=== PATIENT | male | born 1975 | race African-American/Black ===

== ENCOUNTER 2016-07-27 21:59 | Emergency (ER) | payer MEDICARE, OTHER ==
[~2016-07-27] VITALS: Ht 175.3 cm; Wt 81.6 kg
[~2016-07-27 21:59] MED LIST: BENTYL20 MG PO; CHOLESTYRAMI239.4 GM PO; DILAUDID 44 MG/1 ML IJ; DILAUDID4 MG PO; DILAUDID8 MG PO; GATTEX5 MG SQ; HYDROCODON-ACE1 EA16 ORAL; LOMOTIL TABLET1 EACH ORAL; MAGNESIUM OXID400 M1 ORAL; NORCO1 E5 PO; OXYCONTIN30 MG ORAL; SIMETHICONE GA125 MG PO; ZOFRAN4 M3 ORAL
[2016-07-27] MEDS ORDERED: HYDROmorphone 1mg/ml Carpuject IVP ONE (22:30)
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
[2016-07-27 22:55] VITALS: BP 111/74
[2016-07-27 23:30] VITALS: BP 110/76
[2016-07-27 23:32] LABS: BASOPHILS % (AUTO) 0.6 % (0.0-2.0); EOSINOPHILS % (AUTO) 1.2 % (0.0-3.0); LYMPHOCYTES % (AUTO) 19.8 % (20.0-45.0); MEAN CORPUSCULAR HEMOGLOBIN 34.4 PG (27.0-31.0); MEAN CORPUSCULAR HGB CONC 32.5 G/DL (32.0-36.0); MEAN CORPUSCULAR VOLUME 106 FL (80-99); MEAN PLATELET VOLUME 5.8 FL (6.5-10.1); MONOCYTES % (AUTO) 6.1 % (1.0-10.0); NEUTROPHILS % (AUTO) 72.3 % (45.0-75.0); PLATELET COUNT 249 K/UL (150-450); RED BLOOD COUNT 3.37 M/UL (4.70-6.10)
[2016-07-27] MEDS ORDERED: Miralax 17gm pkt ORAL PRN (23:45)
[2016-07-27] MEDS ORDERED: Mylanta II UD 30ml ORAL PRN (23:45)
[2016-07-27] MEDS ORDERED: Morphine Sulfate 2mg/ml Inj IVP PRN (23:45)
[2016-07-27] MEDS ORDERED: Nitroglycerin Subl 0.4mg tab (Bottle Of 25) SL PRN (23:45)
[2016-07-27 23:50] LABS: ALBUMIN/GLOBULIN RATIO 1.4 (1.0-2.7); CALCIUM 9.2 mg/dL (8.6-10.2); CREATININE 2.3 mg/dL (0.7-1.2); GLOMERULAR FILTRATION RATE 38.5 mL/min (>60); MAGNESIUM 1.4 mg/dL (1.7-2.5); POTASSIUM 4.4 mEQ/L (3.4-4.9)
[2016-07-28] MEDS ORDERED: D5 1/2NS 1,000 ML IV SCH (01:00)
[2016-07-28 01:24] VITALS: BP 115/78
[2016-07-28] MEDS ORDERED: Heparin 5000 units/ml inj SUBQ SCH (09:00)
== END 2016-07-28 01:24 | disposition home or self-care (01) ==
LOC: EMR 22:10
DX: R10.84 Generalized abdominal pain (principal); I12.9 Hypertensive chronic kidney disease with stage 1 through stage 4 chronic kidney disease, or unspecified chronic kidney disease; N18.9 Chronic kidney disease, unspecified; E83.42 Hypomagnesemia; G89.29 Other chronic pain; R11.2 Nausea with vomiting, unspecified; Z98.890 Other specified postprocedural states
CPT/HCPCS: 36415; 80053; 83690; 83735; 85025; 99285; J1170; J2405

== ENCOUNTER 2016-10-17 14:57 | Inpatient (IN) | payer MEDICARE, OTHER ==
[~2016-10-17] VITALS: Ht 175.3 cm; Wt 79.4 kg
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
[2016-10-17] MEDS ORDERED: HYDROmorphone 1 MG, DiphenhydrAMINE 25 MG in NS 55 ML IV ONE (15:45)
[2016-10-17] MEDS ORDERED: DiphenhydrAMINE 50mg/ml Inj ONE (16:02)
[2016-10-17] MEDS ORDERED: HYDROmorphone 1mg/ml Carpuject ONE (16:02)
[2016-10-17 16:25] LABS: BASOPHILS % (AUTO) 0.7 % (0.0-2.0); EOSINOPHILS % (AUTO) 0.9 % (0.0-3.0); LYMPHOCYTES % (AUTO) 19.3 % (20.0-45.0); MEAN CORPUSCULAR HEMOGLOBIN 35.7 PG (27.0-31.0); MEAN CORPUSCULAR HGB CONC 33.5 G/DL (32.0-36.0); MEAN CORPUSCULAR VOLUME 107 FL (80-99); MEAN PLATELET VOLUME 6.6 FL (6.5-10.1); MONOCYTES % (AUTO) 7.2 % (1.0-10.0); NEUTROPHILS % (AUTO) 71.9 % (45.0-75.0); PLATELET COUNT 200 K/UL (150-450); RED BLOOD COUNT 3.34 M/UL (4.70-6.10); RED CELL DISTRIBUTION WIDTH 11.9 % (11.6-14.8); WHITE BLOOD COUNT 6.7 K/UL (4.8-10.8)
[2016-10-17 16:41] LABS: PHOSPHORUS 2.8 mg/dL (2.5-4.8)
[2016-10-17 16:42] LABS: MAGNESIUM 0.7 mg/dL (1.7-2.5)
[2016-10-17 16:45] LABS: ALBUMIN/GLOBULIN RATIO 1.4 (1.0-2.7); CALCIUM 8.2 mg/dL (8.6-10.2); CREATININE 2.4 mg/dL (0.7-1.2); GLOMERULAR FILTRATION RATE 36.7 mL/min (>60); POTASSIUM 3.9 mEQ/L (3.4-4.9); TOTAL PROTEIN 6.9 g/dL (6.6-8.7)
[2016-10-17 16:57] LABS: BILIRUBIN,DIRECT 0.1 mg/dL (0.1-0.3)
[2016-10-17 17:00] VITALS: BP 111/65
[2016-10-17 18:01] LABS: APPEARANCE,URINE CLEAR; KETONES,URINE NEGATIVE (NEGATIVE); LEUKOCYTE ESTERASE ,URINE 1+ (NEGATIVE); NITRITE,URINE NEGATIVE (NEGATIVE); PH,URINE 6.5 (4.5-8.0); PROTEIN,URINE 1+ (NEGATIVE); UROBILINOGEN,URINE NORMAL MG/DL (0.0-1.0)
[2016-10-17 18:04] LABS: BACTERIA,URINE FEW /HPF; RBC,URINE 0-2 /HPF (0 - 0)
[2016-10-17 18:15] VITALS: BP 124/94
[2016-10-17] MEDS ORDERED: MULTI-DELYN237 ML ORAL (18:46)
[2016-10-17] MEDS ORDERED: Mylanta II UD 30ml ORAL PRN (19:15)
[2016-10-17] MEDS ORDERED: Morphine Sulfate 2mg/ml Inj IVP PRN (19:15)
[2016-10-17] MEDS ORDERED: LORazepam Inj 2mg/ml 1ml IV PRN (19:15)
[2016-10-17] MEDS ORDERED: Miralax 17gm pkt ORAL PRN (19:15)
[2016-10-17] MEDS ORDERED: Zolpidem 5mg tab ORAL PRN (19:15)
[2016-10-17 20:00] VITALS: BP 121/70
[2016-10-17] MEDS ORDERED: HYDROmorphone 2 MG, DiphenhydrAMINE 25 MG in NS 55 ML IVPB PRN (20:45)
[2016-10-17] MEDS ORDERED: HYDROmorphone 1 MG, DiphenhydrAMINE 25 MG in NS 55 ML IVPB PRN (20:45)
[2016-10-17] MEDS: Heparin 5000 units/ml inj SUBQ SCH (21:00)
[2016-10-17] MEDS ORDERED: HYDROmorphone 1mg/ml Carpuject IVP PRN (21:30)
[2016-10-17] MEDS: DiphenhydrAMINE 50mg/ml Inj IV PRN (21:38)
[2016-10-17] MEDS: Sodium Bicarbonate 50 ML in NS 1000ml 1,000 ML IV SCH (22:25)
[2016-10-18] VITALS: BP 109/58
[2016-10-18] MEDS: DiphenhydrAMINE 50mg/ml Inj IV PRN ×6 (01:54→23:50)
[2016-10-18 06:00] VITALS: BP 110/58
[2016-10-18] MEDS: Sodium Bicarbonate 50 ML in NS 1000ml 1,000 ML IV SCH ×2 (06:24→11:29)
[2016-10-18 07:20] LABS: BASOPHILS % (AUTO) 0.4 % (0.0-2.0); EOSINOPHILS % (AUTO) 1.3 % (0.0-3.0); LYMPHOCYTES % (AUTO) 25.1 % (20.0-45.0); MEAN CORPUSCULAR HEMOGLOBIN 36.1 PG (27.0-31.0); MEAN CORPUSCULAR HGB CONC 33.5 G/DL (32.0-36.0); MEAN CORPUSCULAR VOLUME 108 FL (80-99); MEAN PLATELET VOLUME 7.2 FL (6.5-10.1); MONOCYTES % (AUTO) 7.8 % (1.0-10.0); NEUTROPHILS % (AUTO) 65.4 % (45.0-75.0); PLATELET COUNT 185 K/UL (150-450); RED BLOOD COUNT 3.07 M/UL (4.70-6.10); RED CELL DISTRIBUTION WIDTH 12.2 % (11.6-14.8); WHITE BLOOD COUNT 6.3 K/UL (4.8-10.8)
[2016-10-18 07:37] LABS: CHOLESTEROL/HDL RATIO 2.5 (3.3-4.4); THYROID STIMULATING HORMONE 1.88 uIU/mL (0.300-4.500)
[2016-10-18 07:38] LABS: ALANINE AMINOTRANSFERASE 14 U/L (3-41); ALBUMIN/GLOBULIN RATIO 1.5 (1.0-2.7); ANION GAP 16 (5-15); ASPARTATE AMINO TRANSFERASE 18 U/L (5-40); CALCIUM 8.1 mg/dL (8.6-10.2); CARBON DIOXIDE 17 mEQ/L (20-30); CHLORIDE 111 mEQ/L (98-107); CREATININE 2.3 mg/dL (0.7-1.2); GLOMERULAR FILTRATION RATE 38.5 mL/min (>60); HEMOLYSIS 7; MAGNESIUM 2.4 mg/dL (1.7-2.5); PHOSPHORUS 3.3 mg/dL (2.5-4.8); POTASSIUM 4.3 mEQ/L (3.4-4.9); SODIUM 144 mEQ/L (135-145); URIC ACID 7.7 mg/dL (3.0-7.5)
[2016-10-18] MEDS: Heparin 5000 units/ml inj SUBQ SCH ×2 (08:07→21:00)
[2016-10-18 08:14] LABS: CORTISOL LC 8.8 ug/dL (.); FREE TRIIODOTHYRONINE 2.7 pg/mL (2.0-4.4)
[2016-10-18 08:22] VITALS: BP 125/69
[2016-10-18 09:09] LABS: HEMOGLOBIN A1C 3.7 % (< 6.0)
[2016-10-18] MEDS ORDERED: NS 55ml IV ONE (10:10)
[2016-10-18 10:29] LABS: APPEARANCE,URINE CLEAR; KETONES,URINE NEGATIVE (NEGATIVE); LEUKOCYTE ESTERASE ,URINE NEGATIVE (NEGATIVE); NITRITE,URINE NEGATIVE (NEGATIVE); PH,URINE 6.5 (4.5-8.0); PROTEIN,URINE 1+ (NEGATIVE); UROBILINOGEN,URINE NORMAL MG/DL (0.0-1.0)
[2016-10-18 11:07] VITALS: BP 120/77
[2016-10-18 11:09] LABS: BACTERIA,URINE OCCASIONAL /HPF; RBC,URINE 0-2 /HPF (0 - 0); SQUAMOUS EPITHELIAL CELL,UR OCCASIONAL /LPF (NONE/OCC); WBC,URINE 0-2 /HPF (0 - 0)
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
[2016-10-18 16:00] VITALS: BP 118/68
[2016-10-18] MEDS: Sodium Bicarbonate 50 ML in 1/2 NS 1000ml 1,000 ML IV SCH ×2 (17:20→18:44)
[2016-10-18 20:00] VITALS: BP 128/76
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
[2016-10-19 00:10] VITALS: BP 134/76
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
[2016-10-19] MEDS: DiphenhydrAMINE 50mg/ml Inj IV PRN ×5 (03:55→20:05)
[2016-10-19] MEDS: Sodium Bicarbonate 50 ML in 1/2 NS 1000ml 1,000 ML IV SCH ×3 (03:55→18:55)
[2016-10-19 04:00] VITALS: BP 122/83
[2016-10-19 06:39] LABS: BASOPHILS % (AUTO) 0.4 % (0.0-2.0); EOSINOPHILS % (AUTO) 1.2 % (0.0-3.0); LYMPHOCYTES % (AUTO) 23.2 % (20.0-45.0); MEAN CORPUSCULAR HEMOGLOBIN 34.9 PG (27.0-31.0); MEAN CORPUSCULAR HGB CONC 31.9 G/DL (32.0-36.0); MEAN CORPUSCULAR VOLUME 109 FL (80-99); MONOCYTES % (AUTO) 6.7 % (1.0-10.0); NEUTROPHILS % (AUTO) 68.5 % (45.0-75.0); PLATELET COUNT 182 K/UL (150-450); RED BLOOD COUNT 3.03 M/UL (4.70-6.10); RED CELL DISTRIBUTION WIDTH 12.6 % (11.6-14.8); WHITE BLOOD COUNT 5.8 K/UL (4.8-10.8)
[2016-10-19 07:31] LABS: ALANINE AMINOTRANSFERASE 14 U/L (3-41); ALBUMIN/GLOBULIN RATIO 1.6 (1.0-2.7); ANION GAP 12 (5-15); ASPARTATE AMINO TRANSFERASE 17 U/L (5-40); CALCIUM 8.1 mg/dL (8.6-10.2); CARBON DIOXIDE 19 mEQ/L (20-30); CHLORIDE 113 mEQ/L (98-107); CREATININE 2.2 mg/dL (0.7-1.2); CRP QUANT < 0.3 mg/dL (< 0.5); GLOMERULAR FILTRATION RATE 40.6 mL/min (>60); HEMOLYSIS 5; MAGNESIUM 1.6 mg/dL (1.7-2.5); PHOSPHORUS 2.6 mg/dL (2.5-4.8); POTASSIUM 4.4 mEQ/L (3.4-4.9); SODIUM 144 mEQ/L (135-145); TOTAL PROTEIN 5.6 g/dL (6.6-8.7); URIC ACID 6.7 mg/dL (3.0-7.5)
[2016-10-19] MEDS: Heparin 5000 units/ml inj SUBQ SCH ×2 (08:12→20:07)
[2016-10-19 08:22] VITALS: BP 122/83
[2016-10-19] MEDS ORDERED: Vitamin D 50,000 units cap ORAL SCH (10:00)
--- NOTE | 2016-10-19 10:32 | General Progress Note ---
Assessment/Plan Assessment/Plan status: Hypo Magnesium Acute on Chronic renal failure Short bowel syndrome Plan: IV hydrate, Bicarb and Mag Monitor lytes and Chemistries PO Vit D Subjective ROS Limited/Unobtainable: No Allergies: Coded Allergies: MORPHINE (Unverified Allergy, Unknown, 10/17/16) PROCHLORPERAZINE (Verified Allergy, Unknown, 08/09/11) Uncoded Allergies: morphine sulfate (Allergy, Mild, 12/12/14) Objective Last 24 Hour Vital Signs Date Time Temp Pulse Resp B/P Pulse Ox O2 Delivery O2 Flow Rate FiO2 10/19/16 08:22 97.5 66 20 122/83 98 Room Air 10/19/16 04:26 98.1 10/19/16 04:00 97.7 71 20 122/83 96 Room Air 10/19/16 00:10 98.1 79 20 134/76 99 Room Air 10/18/16 20:00 97.5 75 20 128/76 97 Room Air 10/18/16 16:00 98.0 73 19 118/68 99 Room Air 10/18/16 11:07 97.9 70 20 120/77 100 Room Air Intake and Output 10/18/16 10/19/16 19:00 07:00 Intake Total 1730 ml 1825 ml Balance 1730 ml 1825 ml Intake Oral 480 ml 400 ml IV Total 1250 ml 1425 ml # Voids 3 3 # Bowel Movements 2 1 Laboratory Tests 10/19/16 04:00: White Blood Count 5.8, Red Blood Count 3.03L, Hemoglobin 10.6L, Hematocrit 33.1L , Mean Corpuscular Volume 109H, Mean Corpuscular Hemoglobin 34.9H, Mean Corpuscular Hemoglobin Concent 31.9L, Red Cell Distribution Width 12.6, Platelet Count 182, Mean Platelet Volume 7.0, Neutrophils (%) (Auto) 68.5, Lymphocytes (%) (Auto) 23.2, Monocytes (%) (Auto) 6.7, Eosinophils (%) (Auto) 1.2, Basophils (%) (Auto) 0.4, Sodium Level 144, Potassium Level 4.4, Chloride Level 113H, Carbon Dioxide Level 19L, Anion Gap 12, Blood Urea Nitrogen 11, Creatinine 2.2H, Estimat Glomerular Filtration Rate 40.6, Glucose Level 91, Uric Acid 6.7, Calcium Level 8.1L, Phosphorus Level 2.6, Magnesium Level 1.6L, Total Bilirubin 0.5, Gamma Glutamyl Transpeptidase 9, Aspartate Amino Transf ( AST/SGOT) 17, Alanine Aminotransferase (ALT/SGPT) 14, Alkaline Phosphatase 69, C -Reactive Protein, Quantitative < 0.3, Total Protein 5.6L, Albumin 3.5, Globulin 2.1, Albumin/Globulin Ratio 1.6 Height (Feet): 5 Height (Inches): 9.00 Weight (Pounds): 175 General Appearance: no apparent distress Objective no change in PE DOMINIC STODDARD October 19, 2016 10:32
[2016-10-19 12:29] VITALS: BP 122/79
[2016-10-19 13:27] LABS: HEMOLYSIS 6; IRON 92 ug/dL (59-158); TOTAL IRON BINDING CAPACITY 251 ug/dL (250-400)
[2016-10-19 13:36] LABS: FERRITIN 72 ng/mL (10-230)
[2016-10-19] MEDS: Pantoprazole Inj IVP SCH (15:02)
--- NOTE | 2016-10-19 15:19 | Internal Med Progress Note ---
Subjective Date of Service: October 19, 2016 Physician Name Gallegos,Mauro Attending Physician Bean Gaspar MD Current Medications Medications (Trade) Dose Ordered Sig/Jo Nan Route PRN Reason Start Time Stop Time Status Last Admin Dose Admin Acetaminophen (Tylenol) 650 mg Q4H PRN ORAL fever 10/17/16 19:15 11/16/16 19:14 Al Hydroxide/Mg Hydroxide (Mylanta) 30 ml Q6H PRN ORAL indigestion 10/19/16 13:00 11/18/16 12:59 Clonidine HCl (Catapres) 0.1 mg Q4H PRN ORAL SBP > 160 10/17/16 19:15 11/16/16 19:14 Dextrose (Dextrose 50%) STAT PRN IV Hypoglycemia 10/17/16 19:15 11/16/16 19:14 Diphenhydramine HCl (Benadryl) 50 mg Q4H PRN IV Itching 10/18/16 19:00 11/17/16 18:59 10/19/16 12:01 Ergocalciferol (Drisdol) 50,000 intlu QWEEK ORAL 10/19/16 10:00 11/18/16 09:59 10/19/16 11:04 Heparin Sodium (Porcine) (Heparin 5000 units/ml) 5,000 units EVERY 12 HOURS SUBQ 10/17/16 21:00 11/16/16 20:59 10/19/16 08:12 Hydromorphone HCl (Dilaudid) 1 mg Q4H PRN IVP MODERATE PAIN 10/17/16 21:30 10/24/16 21:29 Hydromorphone HCl 2 mg 2 mg Q4H PRN IVP SEVERE PAIN 10/17/16 21:30 10/24/16 21:29 10/19/16 12:01 Ondansetron HCl (Zofran) 4 mg Q6H PRN IVP Nausea & Vomiting 10/17/16 19:15 11/16/16 19:14 Pantoprazole (Protonix) 40 mg DAILY IVP 10/19/16 14:00 11/18/16 13:59 10/19/16 15:02 Polyethylene Glycol (Miralax) 17 gm HSPRN PRN ORAL Constipation 10/17/16 19:15 11/16/16 19:14 Sodium Bicarbonate/ Sodium Chloride (Sodium Bicarbonate/0.45% NS 1000ml) 1,050 ml @ 125 mls/hr Q8H24M IV 10/18/16 17:30 11/17/16 17:29 10/19/16 03:55 Sucralfate (Carafate) 1 gm BEFORE MEALS ORAL 10/19/16 16:30 11/18/16 16:29 Zolpidem Tartrate (Ambien) 5 mg HSPRN PRN ORAL Insomnia 10/17/16 19:15 11/16/16 19:14 Allergies: Coded Allergies: MORPHINE (Unverified Allergy, Unknown, 10/17/16) PROCHLORPERAZINE (Verified Allergy, Unknown, 08/09/11) Uncoded Allergies: morphine sulfate (Allergy, Mild, 12/12/14) ROS Limited/Unobtainable: No HEENT: Reports: no symptoms Cardiovascular: Reports: no symptoms Respiratory: Reports: no symptoms Gastrointestinal/Abdominal: Reports: abdominal pain, diarrhea Genitourinary: Reports: no symptoms Neurologic/Psychiatric: Reports: no symptoms Subjective 41 YO M with short gut syndrome admitted with muscle cramps and diarrhea. Now hypomagnesemia. C/O watery diarrhea. Cover tor Int Med-Dr Gaspar. Objective Last Vital Signs Date Time Temp Pulse Resp B/P Pulse Ox O2 Delivery O2 Flow Rate FiO2 10/19/16 12:29 97.9 68 18 122/79 98 Room Air Laboratory Tests Test 10/19/16 04:00 10/19/16 12:50 White Blood Count 5.8 K/UL (4.8-10.8) Red Blood Count 3.03 M/UL (4.70-6.10) L Hemoglobin 10.6 G/DL (14.2-18.0) L Hematocrit 33.1 % (42.0-52.0) L Mean Corpuscular Volume 109 FL (80-99) H Mean Corpuscular Hemoglobin 34.9 PG (27.0-31.0) H Mean Corpuscular Hemoglobin Concent 31.9 G/DL (32.0-36.0) L Red Cell Distribution Width 12.6 % (11.6-14.8) Platelet Count 182 K/UL (150-450) Mean Platelet Volume 7.0 FL (6.5-10.1) Neutrophils (%) (Auto) 68.5 % (45.0-75.0) Lymphocytes (%) (Auto) 23.2 % (20.0-45.0) Monocytes (%) (Auto) 6.7 % (1.0-10.0) Eosinophils (%) (Auto) 1.2 % (0.0-3.0) Basophils (%) (Auto) 0.4 % (0.0-2.0) Sodium Level 144 mEQ/L (135-145) Potassium Level 4.4 mEQ/L (3.4-4.9) Chloride Level 113 mEQ/L (98-107) H Carbon Dioxide Level 19 mEQ/L (20-30) L Anion Gap 12 (5-15) Blood Urea Nitrogen 11 mg/dL (7-23) Creatinine 2.2 mg/dL (0.7-1.2) H Estimat Glomerular Filtration Rate 40.6 mL/min (>60) Glucose Level 91 mg/dL (74-106) Uric Acid 6.7 mg/dL (3.0-7.5) Calcium Level 8.1 mg/dL (8.6-10.2) L Phosphorus Level 2.6 mg/dL (2.5-4.8) Magnesium Level 1.6 mg/dL (1.7-2.5) L Total Bilirubin 0.5 mg/dL (0.0-1.2) Gamma Glutamyl Transpeptidase 9 U/L (8-61) Aspartate Amino Transf (AST/SGOT) 17 U/L (5-40) Alanine Aminotransferase (ALT/SGPT) 14 U/L (3-41) Alkaline Phosphatase 69 U/L (40-129) C-Reactive Protein, Quantitative < 0.3 mg/dL (< 0.5) Total Protein 5.6 g/dL (6.6-8.7) L Albumin 3.5 g/dL (3.5-5.2) Globulin 2.1 g/dL Albumin/Globulin Ratio 1.6 (1.0-2.7) Iron Level 92 ug/dL (59-158) Total Iron Binding Capacity 251 ug/dL (250-400) Percent Iron Saturation 37 % (15-50) Unsaturated Iron Binding 159 ug/dL (112-346) Ferritin 72 ng/mL (10-230) Vitamin B12 Level 109 pg/mL (211-946) L Folate Pending Intake and Output 10/18/16 10/19/16 19:00 07:00 Intake Total 1730 ml 1825 ml Balance 1730 ml 1825 ml Intake Oral 480 ml 400 ml IV Total 1250 ml 1425 ml # Voids 3 3 # Bowel Movements 2 1 Objective General: alert, cooperative, no distress, appears stated age Head: normocephalic, without obvious abnormality, atraumatic Eyes: conjunctivae/corneas clear. PERRL, EOM's intact Throat: lips, mucosa, and tongue normal. MMM Neck: supple, symmetrical, trachea midline, and no JVD Lungs: clear to auscultation bilaterally Heart: regular rate and rhythm, S1, S2 normal, no murmur, click, rub or gallop Abdomen: soft, tender to palp, non-distended, hyperactive bowel sounds; no masses or organomegaly Extremities: extremities normal, atraumatic, no cyanosis or edema Pulses: 2+ and symmetric Skin: skin color, texture, turgor normal; no rashes or lesions Neurologic: grossly normal, no focal deficits Assessment/Plan Problem List: (1) Opiate dependence Assessment & Plan: Cont dilaudid (2) Short bowel syndrome (3) Hypomagnesemia (4) Diarrhea Assessment & Plan: Await stool studies. Due to short bowel syndrome. See GI note. (5) Renal failure (6) Abdominal pain (7) GERD (gastroesophageal reflux disease) Assessment & Plan: Cont protonix carafate and mylanta per GI Status: not improved MAURO GALLEGOS October 19, 2016 15:19
[2016-10-19] MEDS: Sucralfate 1gm tab ORAL SCH (16:00)
[2016-10-19 16:20] VITALS: BP 116/72
--- NOTE | 2016-10-19 17:50 | General Progress Note ---
Assessment/Plan Assessment/Plan Assessment - chronic diarrhea - short gut syndrome - recurrent pain - electrolyte abnormalities Recommendations - IV fluids - replace lytes - follow labs - re-establish outpt IV hydration therapy Subjective Allergies: Coded Allergies: MORPHINE (Unverified Allergy, Unknown, 10/17/16) PROCHLORPERAZINE (Verified Allergy, Unknown, 08/09/11) Uncoded Allergies: morphine sulfate (Allergy, Mild, 12/12/14) Objective Last 24 Hour Vital Signs Date Time Temp Pulse Resp B/P Pulse Ox O2 Delivery O2 Flow Rate FiO2 10/19/16 16:20 98.1 78 20 116/72 98 Room Air 10/19/16 12:29 97.9 68 18 122/79 98 Room Air 10/19/16 08:22 97.5 66 20 122/83 98 Room Air 10/19/16 04:26 98.1 10/19/16 04:00 97.7 71 20 122/83 96 Room Air 10/19/16 00:10 98.1 79 20 134/76 99 Room Air 10/18/16 20:00 97.5 75 20 128/76 97 Room Air Intake and Output 10/18/16 10/19/16 19:00 07:00 Intake Total 1730 ml 1825 ml Balance 1730 ml 1825 ml Intake Oral 480 ml 400 ml IV Total 1250 ml 1425 ml # Voids 3 3 # Bowel Movements 2 1 Laboratory Tests 10/19/16 04:00: White Blood Count 5.8, Red Blood Count 3.03L, Hemoglobin 10.6L, Hematocrit 33.1L , Mean Corpuscular Volume 109H, Mean Corpuscular Hemoglobin 34.9H, Mean Corpuscular Hemoglobin Concent 31.9L, Red Cell Distribution Width 12.6, Platelet Count 182, Mean Platelet Volume 7.0, Neutrophils (%) (Auto) 68.5, Lymphocytes (%) (Auto) 23.2, Monocytes (%) (Auto) 6.7, Eosinophils (%) (Auto) 1.2, Basophils (%) (Auto) 0.4, Sodium Level 144, Potassium Level 4.4, Chloride Level 113H, Carbon Dioxide Level 19L, Anion Gap 12, Blood Urea Nitrogen 11, Creatinine 2.2H, Estimat Glomerular Filtration Rate 40.6, Glucose Level 91, Uric Acid 6.7, Calcium Level 8.1L, Phosphorus Level 2.6, Magnesium Level 1.6L, Total Bilirubin 0.5, Gamma Glutamyl Transpeptidase 9, Aspartate Amino Transf ( AST/SGOT) 17, Alanine Aminotransferase (ALT/SGPT) 14, Alkaline Phosphatase 69, C -Reactive Protein, Quantitative < 0.3, Total Protein 5.6L, Albumin 3.5, Globulin 2.1, Albumin/Globulin Ratio 1.6 10/19/16 12:50: Iron Level 92, Total Iron Binding Capacity 251, Percent Iron Saturation 37, Unsaturated Iron Binding 159, Ferritin 72, Vitamin B12 Level 109L, Folate [ Pending] Height (Feet): 5 Height (Inches): 9.00 Weight (Pounds): 175 SIMON CLEMONS October 19, 2016 17:50
[2016-10-19 20:32] VITALS: BP 146/86
--- NOTE | 2016-10-19 22:09 | Pulmonology Progress Note ---
Assessment/Plan Problems: (1) Hypomagnesemia (2) Abdominal pain of unknown etiology (3) CKD (chronic kidney disease) (4) Short bowel syndrome (5) Diarrhea Subjective Allergies: Coded Allergies: MORPHINE (Unverified Allergy, Unknown, 10/17/16) PROCHLORPERAZINE (Verified Allergy, Unknown, 08/09/11) Uncoded Allergies: morphine sulfate (Allergy, Mild, 12/12/14) Objective Last 24 Hour Vital Signs Date Time Temp Pulse Resp B/P Pulse Ox O2 Delivery O2 Flow Rate FiO2 10/19/16 20:45 98.2 10/19/16 20:32 98.2 87 20 146/86 99 Room Air 10/19/16 16:20 98.1 78 20 116/72 98 Room Air 10/19/16 12:29 97.9 68 18 122/79 98 Room Air 10/19/16 08:22 97.5 66 20 122/83 98 Room Air 10/19/16 04:00 97.7 71 20 122/83 96 Room Air 10/19/16 00:10 98.1 79 20 134/76 99 Room Air Intake and Output 10/18/16 10/19/16 19:00 07:00 Intake Total 1730 ml 1825 ml Balance 1730 ml 1825 ml Intake Oral 480 ml 400 ml IV Total 1250 ml 1425 ml # Voids 3 3 # Bowel Movements 2 1 Laboratory Tests 10/19/16 04:00: White Blood Count 5.8, Red Blood Count 3.03L, Hemoglobin 10.6L, Hematocrit 33.1L , Mean Corpuscular Volume 109H, Mean Corpuscular Hemoglobin 34.9H, Mean Corpuscular Hemoglobin Concent 31.9L, Red Cell Distribution Width 12.6, Platelet Count 182, Mean Platelet Volume 7.0, Neutrophils (%) (Auto) 68.5, Lymphocytes (%) (Auto) 23.2, Monocytes (%) (Auto) 6.7, Eosinophils (%) (Auto) 1.2, Basophils (%) (Auto) 0.4, Sodium Level 144, Potassium Level 4.4, Chloride Level 113H, Carbon Dioxide Level 19L, Anion Gap 12, Blood Urea Nitrogen 11, Creatinine 2.2H, Estimat Glomerular Filtration Rate 40.6, Glucose Level 91, Uric Acid 6.7, Calcium Level 8.1L, Phosphorus Level 2.6, Magnesium Level 1.6L, Total Bilirubin 0.5, Gamma Glutamyl Transpeptidase 9, Aspartate Amino Transf ( AST/SGOT) 17, Alanine Aminotransferase (ALT/SGPT) 14, Alkaline Phosphatase 69, C -Reactive Protein, Quantitative < 0.3, Total Protein 5.6L, Albumin 3.5, Globulin 2.1, Albumin/Globulin Ratio 1.6 10/19/16 12:50: Iron Level 92, Total Iron Binding Capacity 251, Percent Iron Saturation 37, Unsaturated Iron Binding 159, Ferritin 72, Vitamin B12 Level 109L, Folate [ Pending] Current Medications Medications (Trade) Dose Ordered Sig/Jo Ann Route PRN Reason Start Time Stop Time Status Last Admin Dose Admin Acetaminophen (Tylenol) 650 mg Q4H PRN ORAL fever 10/17/16 19:15 11/16/16 19:14 Al Hydroxide/Mg Hydroxide (Mylanta) 30 ml Q6H PRN ORAL indigestion 10/19/16 13:00 11/18/16 12:59 Clonidine HCl (Catapres) 0.1 mg Q4H PRN ORAL SBP > 160 10/17/16 19:15 11/16/16 19:14 Dextrose (Dextrose 50%) STAT PRN IV Hypoglycemia 10/17/16 19:15 11/16/16 19:14 Diphenhydramine HCl (Benadryl) 50 mg Q4H PRN IV Itching 10/18/16 19:00 11/17/16 18:59 10/19/16 20:05 Ergocalciferol (Drisdol) 50,000 intlu QWEEK ORAL 10/19/16 10:00 11/18/16 09:59 10/19/16 11:04 Heparin Sodium (Porcine) (Heparin 5000 units/ml) 5,000 units EVERY 12 HOURS SUBQ 10/17/16 21:00 11/16/16 20:59 10/19/16 20:07 Hydromorphone HCl (Dilaudid) 1 mg Q4H PRN IVP MODERATE PAIN 10/17/16 21:30 10/24/16 21:29 Hydromorphone HCl 2 mg 2 mg Q4H PRN IVP SEVERE PAIN 10/17/16 21:30 10/24/16 21:29 10/19/16 20:05 Ondansetron HCl (Zofran) 4 mg Q6H PRN IVP Nausea & Vomiting 10/17/16 19:15 11/16/16 19:14 Pantoprazole (Protonix) 40 mg DAILY IVP 10/19/16 14:00 11/18/16 13:59 10/19/16 15:02 Polyethylene Glycol (Miralax) 17 gm HSPRN PRN ORAL Constipation 10/17/16 19:15 11/16/16 19:14 Sodium Bicarbonate/ Sodium Chloride (Sodium Bicarbonate/0.45% NS 1000ml) 1,050 ml @ 125 mls/hr Q8H24M IV 10/18/16 17:30 11/17/16 17:29 10/19/16 18:55 Sucralfate (Carafate) 1 gm BEFORE MEALS ORAL 10/19/16 16:30 11/18/16 16:29 10/19/16 16:00 Zolpidem Tartrate (Ambien) 5 mg HSPRN PRN ORAL Insomnia 10/17/16 19:15 11/16/16 19:14 RUBY DUNLAP October 19, 2016 22:09
[2016-10-20] MEDS: DiphenhydrAMINE 50mg/ml Inj IV PRN ×6 (00:01→20:09)
[2016-10-20 00:03] VITALS: BP 132/78
[2016-10-20] MEDS: Sodium Bicarbonate 50 ML in 1/2 NS 1000ml 1,000 ML IV SCH ×3 (04:03→23:06)
[2016-10-20 04:13] VITALS: BP 126/76
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
[2016-10-20] MEDS: Sucralfate 1gm tab ORAL SCH ×3 (05:52→16:13)
[2016-10-20 06:47] LABS: MEAN CORPUSCULAR HEMOGLOBIN 35.9 PG (27.0-31.0); MEAN CORPUSCULAR HGB CONC 32.3 G/DL (32.0-36.0); MEAN CORPUSCULAR VOLUME 111 FL (80-99); MEAN PLATELET VOLUME 6.9 FL (6.5-10.1); PLATELET COUNT 168 K/UL (150-450); RED BLOOD COUNT 2.97 M/UL (4.70-6.10); RED CELL DISTRIBUTION WIDTH 12.7 % (11.6-14.8); WHITE BLOOD COUNT 7.9 K/UL (4.8-10.8)
[2016-10-20 07:19] LABS: ALBUMIN/GLOBULIN RATIO 1.4 (1.0-2.7); CALCIUM 8.5 mg/dL (8.6-10.2); CREATININE 2.2 mg/dL (0.7-1.2); GLOMERULAR FILTRATION RATE 40.6 mL/min (>60); MAGNESIUM 2.2 mg/dL (1.7-2.5); PHOSPHORUS 2.2 mg/dL (2.5-4.8); POTASSIUM 4.1 mEQ/L (3.4-4.9); TOTAL PROTEIN 6.1 g/dL (6.6-8.7)
[2016-10-20 08:00] VITALS: BP 128/71
[2016-10-20] MEDS: Pantoprazole Inj IVP SCH (08:06)
[2016-10-20] MEDS: Heparin 5000 units/ml inj SUBQ SCH ×2 (08:06→21:00)
[2016-10-20 10:32] LABS: ANISOCYTOSIS 1+; BAND NEUTROPHILS % (MANUAL) 0 % (0-8); BASOPHILS % (MANUAL) 0 % (0-2); EOSINOPHILS % (MANUAL) 0 % (0-3); LYMPHOCYTES % (MANUAL) 14 % (20-45); NEUTROPHILS % (MANUAL) 79 % (45-75); PLATELET ESTIMATE ADEQUATE; PLATELET MORPHOLOGY NORMAL; TOTAL CELLS COUNTED 100
[2016-10-20 10:33] LABS: MACROCYTES 1+
--- NOTE | 2016-10-20 11:33 | General Progress Note ---
Assessment/Plan Status: unchanged Status Narrative Cr 2.2 Assessment/Plan status: Hypo Magnesium Acute on Chronic renal failure Short bowel syndrome Plan: MIRIAM renal pending IV hydrate, Bicarb and Mag Monitor lytes and Chemistries PO Vit D Subjective ROS Limited/Unobtainable: No Constitutional: Reports: other - vomited once Allergies: Coded Allergies: MORPHINE (Unverified Allergy, Unknown, 10/17/16) PROCHLORPERAZINE (Verified Allergy, Unknown, 08/09/11) Uncoded Allergies: morphine sulfate (Allergy, Mild, 12/12/14) Objective Last 24 Hour Vital Signs Date Time Temp Pulse Resp B/P Pulse Ox O2 Delivery O2 Flow Rate FiO2 10/20/16 08:00 98.1 70 20 128/71 98 Room Air 10/20/16 04:32 98.2 10/20/16 04:13 98.2 68 20 126/76 99 Room Air 10/20/16 00:03 98.4 72 20 132/78 98 Room Air 10/19/16 20:32 98.2 87 20 146/86 99 Room Air 10/19/16 16:20 98.1 78 20 116/72 98 Room Air 10/19/16 12:29 97.9 68 18 122/79 98 Room Air Intake and Output 10/19/16 10/20/16 19:00 07:00 Intake Total 1855 ml 1425 ml Balance 1855 ml 1425 ml Intake Oral 1080 ml IV Total 775 ml 1425 ml # Voids 2 10 Laboratory Tests 10/19/16 12:50: Iron Level 92, Total Iron Binding Capacity 251, Percent Iron Saturation 37, Unsaturated Iron Binding 159, Ferritin 72, Vitamin B12 Level 109L, Folate [ Pending] 10/20/16 05:00: White Blood Count 7.9, Red Blood Count 2.97L, Hemoglobin 10.7L, Hematocrit 33.0L , Mean Corpuscular Volume 111H, Mean Corpuscular Hemoglobin 35.9H, Mean Corpuscular Hemoglobin Concent 32.3, Red Cell Distribution Width 12.7, Platelet Count 168, Mean Platelet Volume 6.9, Neutrophils (%) (Auto) , Lymphocytes (%) ( Auto) , Monocytes (%) (Auto) , Eosinophils (%) (Auto) , Basophils (%) (Auto) , Differential Total Cells Counted 100, Neutrophils % (Manual) 79H, Lymphocytes % (Manual) 14L, Monocytes % (Manual) 7, Eosinophils % (Manual) 0, Basophils % ( Manual) 0, Band Neutrophils 0, Platelet Estimate Adequate, Platelet Morphology Normal, Anisocytosis 1+, Macrocytosis 1+, Sodium Level 145, Potassium Level 4.1 , Chloride Level 109H, Carbon Dioxide Level 20, Anion Gap 16H, Blood Urea Nitrogen 12, Creatinine 2.2H, Estimat Glomerular Filtration Rate 40.6, Glucose Level 91, Uric Acid 7.0, Calcium Level 8.5L, Phosphorus Level 2.2L, Magnesium Level 2.2, Total Bilirubin 0.9, Aspartate Amino Transf (AST/SGOT) 21, Alanine Aminotransferase (ALT/SGPT) 16, Alkaline Phosphatase 70, Total Protein 6.1L, Albumin 3.6, Globulin 2.5, Albumin/Globulin Ratio 1.4 Height (Feet): 5 Height (Inches): 9.00 Weight (Pounds): 175 General Appearance: no apparent distress Objective no change in PE DOMINIC STODDARD October 20, 2016 11:33
[2016-10-20 12:00] VITALS: BP 146/99
--- NOTE | 2016-10-20 14:47 | Internal Med Progress Note ---
Subjective Date of Service: October 20, 2016 Physician Name Chaz Gallegos Attending Physician Bean Gaspar MD Current Medications Medications (Trade) Dose Ordered Sig/Jo Ann Route PRN Reason Start Time Stop Time Status Last Admin Dose Admin Acetaminophen (Tylenol) 650 mg Q4H PRN ORAL fever 10/17/16 19:15 11/16/16 19:14 Al Hydroxide/Mg Hydroxide 30 ml 30 ml Q6H PRN ORAL indigestion 10/19/16 13:00 11/18/16 12:59 Clonidine HCl (Catapres) 0.1 mg Q4H PRN ORAL SBP > 160 10/17/16 19:15 11/16/16 19:14 Dextrose (Dextrose 50%) STAT PRN IV Hypoglycemia 10/17/16 19:15 11/16/16 19:14 Diphenhydramine HCl (Benadryl) 50 mg Q4H PRN IV Itching 10/18/16 19:00 11/17/16 18:59 10/20/16 12:10 Ergocalciferol (Drisdol) 50,000 intlu QWEEK ORAL 10/19/16 10:00 11/18/16 09:59 10/19/16 11:04 Heparin Sodium (Porcine) (Heparin 5000 units/ml) 5,000 units EVERY 12 HOURS SUBQ 10/17/16 21:00 11/16/16 20:59 10/19/16 20:07 Hydromorphone HCl (Dilaudid) 1 mg Q4H PRN IVP MODERATE PAIN 10/17/16 21:30 10/24/16 21:29 Hydromorphone HCl 2 mg 2 mg Q4H PRN IVP SEVERE PAIN 10/17/16 21:30 10/24/16 21:29 10/20/16 12:10 Magnesium Sulfate (Magnesium Sulfate 1gm/100ml) 100 ml @ 100 mls/hr Q1H IVPB 10/20/16 12:00 10/20/16 14:59 10/20/16 14:38 Ondansetron HCl (Zofran) 4 mg Q6H PRN IVP Nausea & Vomiting 10/17/16 19:15 11/16/16 19:14 10/20/16 08:16 Pantoprazole (Protonix) 40 mg DAILY IVP 10/19/16 14:00 11/18/16 13:59 10/20/16 08:06 Polyethylene Glycol (Miralax) 17 gm HSPRN PRN ORAL Constipation 10/17/16 19:15 11/16/16 19:14 Sodium Bicarbonate/ Sodium Chloride (Sodium Bicarbonate/0.45% NS 1000ml) 1,050 ml @ 125 mls/hr Q8H24M IV 10/18/16 17:30 11/17/16 17:29 10/20/16 11:29 Sucralfate (Carafate) 1 gm BEFORE MEALS ORAL 10/19/16 16:30 11/18/16 16:29 10/20/16 11:28 Zolpidem Tartrate (Ambien) 5 mg HSPRN PRN ORAL Insomnia 10/17/16 19:15 11/16/16 19:14 Allergies: Coded Allergies: MORPHINE (Unverified Allergy, Unknown, 10/17/16) PROCHLORPERAZINE (Verified Allergy, Unknown, 08/09/11) Uncoded Allergies: morphine sulfate (Allergy, Mild, 12/12/14) ROS Limited/Unobtainable: No Constitutional: Reports: no symptoms HEENT: Reports: no symptoms Cardiovascular: Reports: no symptoms Respiratory: Reports: no symptoms Gastrointestinal/Abdominal: Reports: abdominal pain, diarrhea Genitourinary: Reports: no symptoms Neurologic/Psychiatric: Reports: no symptoms Subjective 41 YO M with short gut syndrome admitted with muscle cramps and diarrhea. Now hypomagnesemia. C/O watery diarrhea and nausea. Cover tor Int Med-Dr Gaspar. Objective Last Vital Signs Date Time Temp Pulse Resp B/P Pulse Ox O2 Delivery O2 Flow Rate FiO2 10/20/16 12:00 98.2 72 18 146/99 100 Room Air Laboratory Tests Test 10/20/16 05:00 White Blood Count 7.9 K/UL (4.8-10.8) Red Blood Count 2.97 M/UL (4.70-6.10) L Hemoglobin 10.7 G/DL (14.2-18.0) L Hematocrit 33.0 % (42.0-52.0) L Mean Corpuscular Volume 111 FL (80-99) H Mean Corpuscular Hemoglobin 35.9 PG (27.0-31.0) H Mean Corpuscular Hemoglobin Concent 32.3 G/DL (32.0-36.0) Red Cell Distribution Width 12.7 % (11.6-14.8) Platelet Count 168 K/UL (150-450) Mean Platelet Volume 6.9 FL (6.5-10.1) Neutrophils (%) (Auto) % (45.0-75.0) Lymphocytes (%) (Auto) % (20.0-45.0) Monocytes (%) (Auto) % (1.0-10.0) Eosinophils (%) (Auto) % (0.0-3.0) Basophils (%) (Auto) % (0.0-2.0) Differential Total Cells Counted 100 Neutrophils % (Manual) 79 % (45-75) H Lymphocytes % (Manual) 14 % (20-45) L Monocytes % (Manual) 7 % (1-10) Eosinophils % (Manual) 0 % (0-3) Basophils % (Manual) 0 % (0-2) Band Neutrophils 0 % (0-8) Platelet Estimate Adequate Platelet Morphology Normal Anisocytosis 1+ Macrocytosis 1+ Sodium Level 145 mEQ/L (135-145) Potassium Level 4.1 mEQ/L (3.4-4.9) Chloride Level 109 mEQ/L (98-107) H Carbon Dioxide Level 20 mEQ/L (20-30) Anion Gap 16 (5-15) H Blood Urea Nitrogen 12 mg/dL (7-23) Creatinine 2.2 mg/dL (0.7-1.2) H Estimat Glomerular Filtration Rate 40.6 mL/min (>60) Glucose Level 91 mg/dL (74-106) Uric Acid 7.0 mg/dL (3.0-7.5) Calcium Level 8.5 mg/dL (8.6-10.2) L Phosphorus Level 2.2 mg/dL (2.5-4.8) L Magnesium Level 2.2 mg/dL (1.7-2.5) Total Bilirubin 0.9 mg/dL (0.0-1.2) Aspartate Amino Transf (AST/SGOT) 21 U/L (5-40) Alanine Aminotransferase (ALT/SGPT) 16 U/L (3-41) Alkaline Phosphatase 70 U/L (40-129) Total Protein 6.1 g/dL (6.6-8.7) L Albumin 3.6 g/dL (3.5-5.2) Globulin 2.5 g/dL Albumin/Globulin Ratio 1.4 (1.0-2.7) Microbiology Date/Time Source Procedure Growth Status 10/19/16 04:30 Stool Stool Culture - Preliminary Resulted 10/19/16 04:30 Stool Clostridium difficile Toxin Assay - Final Resulted Intake and Output 10/19/16 10/20/16 19:00 07:00 Intake Total 1855 ml 1425 ml Balance 1855 ml 1425 ml Intake Oral 1080 ml IV Total 775 ml 1425 ml # Voids 2 10 Objective General: alert, cooperative, no distress, appears stated age Head: normocephalic, without obvious abnormality, atraumatic Eyes: conjunctivae/corneas clear. PERRL, EOM's intact Throat: lips, mucosa, and tongue normal. MMM Neck: supple, symmetrical, trachea midline, and no JVD Lungs: clear to auscultation bilaterally Heart: regular rate and rhythm, S1, S2 normal, no murmur, click, rub or gallop Abdomen: soft, tender to palp, non-distended, hyperactive bowel sounds; no masses or organomegaly Extremities: extremities normal, atraumatic, no cyanosis or edema Pulses: 2+ and symmetric Skin: skin color, texture, turgor normal; no rashes or lesions Neurologic: grossly normal, no focal deficits Assessment/Plan Problem List: (1) Opiate dependence Assessment & Plan: Cont dilaudid (2) Short bowel syndrome (3) Hypomagnesemia Assessment & Plan: Due to diarrhea; replace magnesium (4) Diarrhea Assessment & Plan: Await stool studies. Due to short bowel syndrome. See GI note. (5) Renal failure (6) Abdominal pain Assessment & Plan: Cont dilaudid (7) GERD (gastroesophageal reflux disease) Assessment & Plan: Cont protonix carafate and mylanta per GI Status: not improved CHAZ GALELGOS October 20, 2016 14:47
--- NOTE | 2016-10-20 15:44 | General Progress Note ---
Assessment/Plan Assessment/Plan Assessment - chronic diarrhea - short gut syndrome - recurrent pain - electrolyte abnormalities - N/V - H/A Recommendations - IV fluids - replace lytes - follow labs - re-establish outpt IV hydration therapy Subjective Allergies: Coded Allergies: MORPHINE (Unverified Allergy, Unknown, 10/17/16) PROCHLORPERAZINE (Verified Allergy, Unknown, 08/09/11) Uncoded Allergies: morphine sulfate (Allergy, Mild, 12/12/14) Subjective had an episode of N/V this am now better c/o migraine H/A offered Rx - declined Objective Last 24 Hour Vital Signs Date Time Temp Pulse Resp B/P Pulse Ox O2 Delivery O2 Flow Rate FiO2 10/20/16 12:00 98.2 72 18 146/99 100 Room Air 10/20/16 08:00 98.1 70 20 128/71 98 Room Air 10/20/16 04:32 98.2 10/20/16 04:13 98.2 68 20 126/76 99 Room Air 10/20/16 00:03 98.4 72 20 132/78 98 Room Air 10/19/16 20:32 98.2 87 20 146/86 99 Room Air 10/19/16 16:20 98.1 78 20 116/72 98 Room Air Intake and Output 10/19/16 10/20/16 19:00 07:00 Intake Total 1855 ml 1425 ml Balance 1855 ml 1425 ml Intake Oral 1080 ml IV Total 775 ml 1425 ml # Voids 2 10 Laboratory Tests 10/20/16 05:00: White Blood Count 7.9, Red Blood Count 2.97L, Hemoglobin 10.7L, Hematocrit 33.0L , Mean Corpuscular Volume 111H, Mean Corpuscular Hemoglobin 35.9H, Mean Corpuscular Hemoglobin Concent 32.3, Red Cell Distribution Width 12.7, Platelet Count 168, Mean Platelet Volume 6.9, Neutrophils (%) (Auto) , Lymphocytes (%) ( Auto) , Monocytes (%) (Auto) , Eosinophils (%) (Auto) , Basophils (%) (Auto) , Differential Total Cells Counted 100, Neutrophils % (Manual) 79H, Lymphocytes % (Manual) 14L, Monocytes % (Manual) 7, Eosinophils % (Manual) 0, Basophils % ( Manual) 0, Band Neutrophils 0, Platelet Estimate Adequate, Platelet Morphology Normal, Anisocytosis 1+, Macrocytosis 1+, Sodium Level 145, Potassium Level 4.1 , Chloride Level 109H, Carbon Dioxide Level 20, Anion Gap 16H, Blood Urea Nitrogen 12, Creatinine 2.2H, Estimat Glomerular Filtration Rate 40.6, Glucose Level 91, Uric Acid 7.0, Calcium Level 8.5L, Phosphorus Level 2.2L, Magnesium Level 2.2, Total Bilirubin 0.9, Aspartate Amino Transf (AST/SGOT) 21, Alanine Aminotransferase (ALT/SGPT) 16, Alkaline Phosphatase 70, Total Protein 6.1L, Albumin 3.6, Globulin 2.5, Albumin/Globulin Ratio 1.4 Height (Feet): 5 Height (Inches): 9.00 Weight (Pounds): 175 Objective WDWN NCAT supple CTA RRR Soft ND NT no edema SIMON CLEMONS October 20, 2016 15:44
[2016-10-20 16:00] VITALS: BP 119/71
[2016-10-20] MEDS ORDERED: Tubing IV Secondary IV ONE (16:06)
[2016-10-20 19:56] VITALS: BP 130/76
--- NOTE | 2016-10-20 22:56 | Pulmonology Progress Note ---
Assessment/Plan Problems: (1) Hypomagnesemia (2) Abdominal pain of unknown etiology (3) CKD (chronic kidney disease) (4) Short bowel syndrome (5) Diarrhea Subjective Allergies: Coded Allergies: MORPHINE (Unverified Allergy, Unknown, 10/17/16) PROCHLORPERAZINE (Verified Allergy, Unknown, 08/09/11) Uncoded Allergies: morphine sulfate (Allergy, Mild, 12/12/14) Objective Last 24 Hour Vital Signs Date Time Temp Pulse Resp B/P Pulse Ox O2 Delivery O2 Flow Rate FiO2 10/20/16 20:39 97.7 10/20/16 19:56 97.7 75 18 130/76 Room Air 10/20/16 16:00 98.1 78 18 119/71 100 Room Air 10/20/16 12:00 98.2 72 18 146/99 100 Room Air 10/20/16 08:00 98.1 70 20 128/71 98 Room Air 10/20/16 04:13 98.2 68 20 126/76 99 Room Air 10/20/16 00:03 98.4 72 20 132/78 98 Room Air Intake and Output 10/19/16 10/20/16 19:00 07:00 Intake Total 1855 ml 1425 ml Balance 1855 ml 1425 ml Intake Oral 1080 ml IV Total 775 ml 1425 ml # Voids 2 10 Microbiology Date/Time Source Procedure Growth Status 10/19/16 04:30 Stool Stool Culture - Preliminary Resulted 10/19/16 04:30 Stool Clostridium difficile Toxin Assay - Final Resulted Laboratory Tests 10/20/16 05:00: White Blood Count 7.9, Red Blood Count 2.97L, Hemoglobin 10.7L, Hematocrit 33.0L , Mean Corpuscular Volume 111H, Mean Corpuscular Hemoglobin 35.9H, Mean Corpuscular Hemoglobin Concent 32.3, Red Cell Distribution Width 12.7, Platelet Count 168, Mean Platelet Volume 6.9, Neutrophils (%) (Auto) , Lymphocytes (%) ( Auto) , Monocytes (%) (Auto) , Eosinophils (%) (Auto) , Basophils (%) (Auto) , Differential Total Cells Counted 100, Neutrophils % (Manual) 79H, Lymphocytes % (Manual) 14L, Monocytes % (Manual) 7, Eosinophils % (Manual) 0, Basophils % ( Manual) 0, Band Neutrophils 0, Platelet Estimate Adequate, Platelet Morphology Normal, Anisocytosis 1+, Macrocytosis 1+, Sodium Level 145, Potassium Level 4.1 , Chloride Level 109H, Carbon Dioxide Level 20, Anion Gap 16H, Blood Urea Nitrogen 12, Creatinine 2.2H, Estimat Glomerular Filtration Rate 40.6, Glucose Level 91, Uric Acid 7.0, Calcium Level 8.5L, Phosphorus Level 2.2L, Magnesium Level 2.2, Total Bilirubin 0.9, Aspartate Amino Transf (AST/SGOT) 21, Alanine Aminotransferase (ALT/SGPT) 16, Alkaline Phosphatase 70, Total Protein 6.1L, Albumin 3.6, Globulin 2.5, Albumin/Globulin Ratio 1.4 Current Medications Medications (Trade) Dose Ordered Sig/Jo Ann Route PRN Reason Start Time Stop Time Status Last Admin Dose Admin Acetaminophen (Tylenol) 650 mg Q4H PRN ORAL fever 10/17/16 19:15 11/16/16 19:14 Al Hydroxide/Mg Hydroxide (Mylanta) 30 ml Q6H PRN ORAL indigestion 10/19/16 13:00 11/18/16 12:59 Clonidine HCl (Catapres) 0.1 mg Q4H PRN ORAL SBP > 160 10/17/16 19:15 11/16/16 19:14 Dextrose (Dextrose 50%) STAT PRN IV Hypoglycemia 10/17/16 19:15 11/16/16 19:14 Diphenhydramine HCl (Benadryl) 50 mg Q4H PRN IV Itching 10/18/16 19:00 11/17/16 18:59 10/20/16 20:09 Ergocalciferol (Drisdol) 50,000 intlu QWEEK ORAL 10/19/16 10:00 11/18/16 09:59 10/19/16 11:04 Heparin Sodium (Porcine) (Heparin 5000 units/ml) 5,000 units EVERY 12 HOURS SUBQ 10/17/16 21:00 11/16/16 20:59 10/19/16 20:07 Hydromorphone HCl (Dilaudid) 1 mg Q4H PRN IVP MODERATE PAIN 10/17/16 21:30 10/24/16 21:29 Hydromorphone HCl 2 mg 2 mg Q4H PRN IVP SEVERE PAIN 10/17/16 21:30 10/24/16 21:29 10/20/16 20:09 Ondansetron HCl (Zofran) 4 mg Q6H PRN IVP Nausea & Vomiting 10/17/16 19:15 11/16/16 19:14 10/20/16 08:16 Pantoprazole (Protonix) 40 mg DAILY IVP 10/19/16 14:00 11/18/16 13:59 10/20/16 08:06 Polyethylene Glycol (Miralax) 17 gm HSPRN PRN ORAL Constipation 10/17/16 19:15 11/16/16 19:14 Sodium Bicarbonate/ Sodium Chloride (Sodium Bicarbonate/0.45% NS 1000ml) 1,050 ml @ 125 mls/hr Q8H24M IV 10/18/16 17:30 11/17/16 17:29 10/20/16 11:29 Sucralfate (Carafate) 1 gm BEFORE MEALS ORAL 10/19/16 16:30 11/18/16 16:29 10/20/16 16:13 Zolpidem Tartrate (Ambien) 5 mg HSPRN PRN ORAL Insomnia 10/17/16 19:15 11/16/16 19:14 RUBY DUNLAP October 20, 2016 22:56
[2016-10-21] MEDS: DiphenhydrAMINE 50mg/ml Inj IV PRN ×6 (00:04→20:57)
[2016-10-21 04:39] VITALS: BP 131/80
[2016-10-21] MEDS: Sucralfate 1gm tab ORAL SCH ×3 (05:56→15:58)
[2016-10-21] MEDS: Sodium Bicarbonate 50 ML in 1/2 NS 1000ml 1,000 ML IV SCH ×3 (05:56→20:58)
[2016-10-21 08:03] LABS: BASOPHILS % (AUTO) 0.4 % (0.0-2.0); EOSINOPHILS % (AUTO) 1.1 % (0.0-3.0); LYMPHOCYTES % (AUTO) 20.2 % (20.0-45.0); MEAN CORPUSCULAR HEMOGLOBIN 35.5 PG (27.0-31.0); MEAN CORPUSCULAR HGB CONC 32.3 G/DL (32.0-36.0); MEAN CORPUSCULAR VOLUME 110 FL (80-99); MEAN PLATELET VOLUME 6.8 FL (6.5-10.1); MONOCYTES % (AUTO) 9.7 % (1.0-10.0); NEUTROPHILS % (AUTO) 68.7 % (45.0-75.0); PLATELET COUNT 176 K/UL (150-450); RED BLOOD COUNT 3.03 M/UL (4.70-6.10); RED CELL DISTRIBUTION WIDTH 12.2 % (11.6-14.8); WHITE BLOOD COUNT 6.8 K/UL (4.8-10.8)
--- NOTE | 2016-10-21 08:08 | Diagnostic Imaging Report ---
Indication:Elevated Bun and Creatinine. Technique: Grayscale and duplex Doppler imaging of the kidneys performed. Comparison: None Findings: The size, contour, and echogenicity of both kidneys are within normal limits. Small cysts are seen within both kidneys. Both kidneys measure between 11 and 12 cm in length. There is no hydronephrosis. The IVC and urinary bladder are unremarkable. Impression: Negative exam. Small bilateral renal cysts
[2016-10-21 08:13] LABS: CALCIUM 8.5 mg/dL (8.6-10.2); CREATININE 2.1 mg/dL (0.7-1.2); GLOMERULAR FILTRATION RATE 42.8 mL/min (>60); POTASSIUM 3.8 mEQ/L (3.4-4.9)
[2016-10-21 08:15] VITALS: BP 129/86
[2016-10-21] MEDS: Pantoprazole Inj IVP SCH (08:46)
[2016-10-21] MEDS: Heparin 5000 units/ml inj SUBQ SCH ×2 (08:59→20:58)
--- NOTE | 2016-10-21 10:55 | General Progress Note ---
Assessment/Plan Status: stable Assessment/Plan status: Hypo Magnesium Acute on Chronic renal failure Short bowel syndrome Low B12 Plan: MIRIAM renal : unremarkable B12 and Folate IV hydrate, Bicarb and Mag Monitor lytes and Chemistries PO Vit D Subjective ROS Limited/Unobtainable: No Allergies: Coded Allergies: MORPHINE (Unverified Allergy, Unknown, 10/17/16) PROCHLORPERAZINE (Verified Allergy, Unknown, 08/09/11) Uncoded Allergies: morphine sulfate (Allergy, Mild, 12/12/14) Objective Last 24 Hour Vital Signs Date Time Temp Pulse Resp B/P Pulse Ox O2 Delivery O2 Flow Rate FiO2 10/21/16 08:15 97.4 61 20 129/86 98 Room Air 10/21/16 04:39 97.7 63 20 131/80 98 Room Air 10/21/16 04:38 97.7 10/20/16 23:54 97.7 67 20 100 Room Air 10/20/16 19:56 97.7 75 18 130/76 Room Air 10/20/16 16:00 98.1 78 18 119/71 100 Room Air 10/20/16 12:00 98.2 72 18 146/99 100 Room Air Intake and Output 10/20/16 10/21/16 19:00 07:00 Intake Total 2560 ml 1490 ml Balance 2560 ml 1490 ml Intake Oral 1200 ml IV Total 1360 ml 1490 ml # Voids 3 7 # Bowel Movements 1 Laboratory Tests 10/21/16 05:00: White Blood Count 6.8, Red Blood Count 3.03L, Hemoglobin 10.8L, Hematocrit 33.3L , Mean Corpuscular Volume 110H, Mean Corpuscular Hemoglobin 35.5H, Mean Corpuscular Hemoglobin Concent 32.3, Red Cell Distribution Width 12.2, Platelet Count 176, Mean Platelet Volume 6.8, Neutrophils (%) (Auto) 68.7, Lymphocytes (% ) (Auto) 20.2, Monocytes (%) (Auto) 9.7, Eosinophils (%) (Auto) 1.1, Basophils ( %) (Auto) 0.4, Sodium Level 144, Potassium Level 3.8, Chloride Level 108H, Carbon Dioxide Level 22, Anion Gap 14, Blood Urea Nitrogen 10, Creatinine 2.1H, Estimat Glomerular Filtration Rate 42.8, Glucose Level 90, Calcium Level 8.5L, Magnesium Level 2.1 Height (Feet): 5 Height (Inches): 9.00 Weight (Pounds): 175 General Appearance: no apparent distress Objective no change in PE DOMINIC STODDARD October 21, 2016 10:55
[2016-10-21 11:43] VITALS: BP 146/100
[2016-10-21] MEDS: Vitamin B12 1000mcg/ml Inj IM SCH (12:28)
--- NOTE | 2016-10-21 13:42 | GI Progress Note ---
Assessment/Plan Problems: (1) GERD (gastroesophageal reflux disease) ICD Codes: K21.9 - Gastro-esophageal reflux disease without esophagitis SNOMED: 416726538 (2) Abdominal pain ICD Codes: R10.9 - Unspecified abdominal pain SNOMED: 47545175 (3) Diarrhea ICD Codes: R19.7 - Diarrhea, unspecified SNOMED: 13253971 (4) Hypomagnesemia ICD Codes: E83.42 - Hypomagnesemia SNOMED: 525883602 (5) Short bowel syndrome ICD Codes: K91.2 - Postsurgical malabsorption, not elsewhere classified SNOMED: 01445260 (6) Anemia ICD Codes: D64.9 - Anemia, unspecified SNOMED: 936916642 Status: unchanged Status Narrative Discussed with Dr. Alegre. Assessment/Plan Assessment - chronic diarrhea - short gut syndrome - recurrent pain - electrolyte abnormalities - N/V - H/A - Cdiff negative Recommendations cholestyramine for diarrhea associated with short gut syndrome lifelong B12 supplementation avoid high carbohydrate diet which may induce osmotic diarrhea H2B monitor H&H, transfuse prn lomotil prn electrolyte replacement fu labs Subjective Subjective diarrhea Objective Last 24 Hour Vital Signs Date Time Temp Pulse Resp B/P Pulse Ox O2 Delivery O2 Flow Rate FiO2 10/21/16 11:43 97.5 88 20 146/100 98 Room Air 10/21/16 08:15 97.4 61 20 129/86 98 Room Air 10/21/16 04:39 97.7 63 20 131/80 98 Room Air 10/21/16 04:38 97.7 10/20/16 23:54 97.7 67 20 100 Room Air 10/20/16 19:56 97.7 75 18 130/76 Room Air 10/20/16 16:00 98.1 78 18 119/71 100 Room Air Intake and Output 10/20/16 10/21/16 19:00 07:00 Intake Total 2560 ml 1490 ml Balance 2560 ml 1490 ml Intake Oral 1200 ml IV Total 1360 ml 1490 ml # Voids 3 7 # Bowel Movements 1 Laboratory Tests Test 10/21/16 05:00 White Blood Count 6.8 K/UL (4.8-10.8) Red Blood Count 3.03 M/UL (4.70-6.10) L Hemoglobin 10.8 G/DL (14.2-18.0) L Hematocrit 33.3 % (42.0-52.0) L Mean Corpuscular Volume 110 FL (80-99) H Mean Corpuscular Hemoglobin 35.5 PG (27.0-31.0) H Mean Corpuscular Hemoglobin Concent 32.3 G/DL (32.0-36.0) Red Cell Distribution Width 12.2 % (11.6-14.8) Platelet Count 176 K/UL (150-450) Mean Platelet Volume 6.8 FL (6.5-10.1) Neutrophils (%) (Auto) 68.7 % (45.0-75.0) Lymphocytes (%) (Auto) 20.2 % (20.0-45.0) Monocytes (%) (Auto) 9.7 % (1.0-10.0) Eosinophils (%) (Auto) 1.1 % (0.0-3.0) Basophils (%) (Auto) 0.4 % (0.0-2.0) Sodium Level 144 mEQ/L (135-145) Potassium Level 3.8 mEQ/L (3.4-4.9) Chloride Level 108 mEQ/L (98-107) H Carbon Dioxide Level 22 mEQ/L (20-30) Anion Gap 14 (5-15) Blood Urea Nitrogen 10 mg/dL (7-23) Creatinine 2.1 mg/dL (0.7-1.2) H Estimat Glomerular Filtration Rate 42.8 mL/min (>60) Glucose Level 90 mg/dL (74-106) Calcium Level 8.5 mg/dL (8.6-10.2) L Magnesium Level 2.1 mg/dL (1.7-2.5) Height (Feet): 5 Height (Inches): 9.00 Weight (Pounds): 175 General Appearance: no apparent distress, alert Cardiovascular: normal rate Respiratory/Chest: normal breath sounds, no respiratory distress Abdominal Exam: normal bowel sounds, non tender, soft Extremities: normal range of motion Isamar Treviño N.P. October 21, 2016 13:42
[2016-10-21] MEDS ORDERED: Lomotil 2.5mg tab ORAL PRN (13:45)
[2016-10-21 14:18] LABS: APPEARANCE,URINE CLEAR; KETONES,URINE NEGATIVE (NEGATIVE); LEUKOCYTE ESTERASE ,URINE NEGATIVE (NEGATIVE); NITRITE,URINE NEGATIVE (NEGATIVE); PH,URINE 7 (4.5-8.0); PROTEIN,URINE NEGATIVE (NEGATIVE); UROBILINOGEN,URINE NORMAL MG/DL (0.0-1.0)
[2016-10-21 14:31] LABS: BACTERIA,URINE OCCASIONAL /HPF; RBC,URINE 0-2 /HPF (0 - 0); SQUAMOUS EPITHELIAL CELL,UR OCCASIONAL /LPF (NONE/OCC); WBC,URINE 0-2 /HPF (0 - 0)
--- NOTE | 2016-10-21 14:37 | Internal Med Progress Note ---
Subjective Date of Service: October 21, 2016 Physician Name Chaz Gallegos Attending Physician Bean Gaspar MD Current Medications Medications (Trade) Dose Ordered Sig/Jo Ann Route PRN Reason Start Time Stop Time Status Last Admin Dose Admin Acetaminophen (Tylenol) 650 mg Q4H PRN ORAL fever 10/17/16 19:15 11/16/16 19:14 Al Hydroxide/Mg Hydroxide 30 ml 30 ml Q6H PRN ORAL indigestion 10/19/16 13:00 11/18/16 12:59 Cholestyramine Resin (Questran) 4 gm THREE TIMES A DAY ORAL 10/21/16 18:00 11/20/16 17:59 Clonidine HCl (Catapres) 0.1 mg Q4H PRN ORAL SBP > 160 10/17/16 19:15 11/16/16 19:14 Cyanocobalamin (Vitamin B12) 1,000 mcg DAILY IM 10/21/16 12:00 10/25/16 09:01 10/21/16 12:28 Dextrose (Dextrose 50%) STAT PRN IV Hypoglycemia 10/17/16 19:15 11/16/16 19:14 Diphenhydramine HCl (Benadryl) 50 mg Q4H PRN IV Itching 10/18/16 19:00 11/17/16 18:59 10/21/16 12:54 Diphenoxylate HCl/ Atropine (Lomotil) 2.5 mg Q4H PRN ORAL Diarrhea 10/21/16 13:45 11/20/16 13:44 Ergocalciferol (Drisdol) 50,000 intlu QWEEK ORAL 10/19/16 10:00 11/18/16 09:59 10/19/16 11:04 Famotidine (Pepcid I.v.) 20 mg Q12HR IVP 10/21/16 21:00 11/20/16 20:59 Folic Acid (Folate) 2 mg BID ORAL 10/21/16 11:00 11/20/16 10:59 10/21/16 11:08 Heparin Sodium (Porcine) (Heparin 5000 units/ml) 5,000 units EVERY 12 HOURS SUBQ 10/17/16 21:00 11/16/16 20:59 10/21/16 08:59 Hydromorphone HCl (Dilaudid) 1 mg Q4H PRN IVP MODERATE PAIN 10/17/16 21:30 10/24/16 21:29 Hydromorphone HCl 2 mg 2 mg Q4H PRN IVP SEVERE PAIN 10/17/16 21:30 10/24/16 21:29 10/21/16 12:54 Magnesium Sulfate (Magnesium Sulfate 1gm/100ml) 100 ml @ 100 mls/hr Q1H IVPB 10/21/16 11:00 10/21/16 14:59 10/21/16 13:56 Ondansetron HCl (Zofran) 4 mg Q6H PRN IVP Nausea & Vomiting 10/17/16 19:15 11/16/16 19:14 10/20/16 08:16 Pantoprazole (Protonix) 40 mg EVERY 12 HOURS ORAL 10/21/16 21:00 11/20/16 20:59 Polyethylene Glycol (Miralax) 17 gm HSPRN PRN ORAL Constipation 10/17/16 19:15 11/16/16 19:14 Sodium Bicarbonate/ Sodium Chloride (Sodium Bicarbonate/0.45% NS 1000ml) 1,050 ml @ 125 mls/hr Q8H24M IV 10/18/16 17:30 11/17/16 17:29 10/21/16 05:56 Sucralfate (Carafate) 1 gm BEFORE MEALS ORAL 10/19/16 16:30 11/18/16 16:29 10/21/16 11:08 Zolpidem Tartrate (Ambien) 5 mg HSPRN PRN ORAL Insomnia 10/17/16 19:15 11/16/16 19:14 Allergies: Coded Allergies: MORPHINE (Unverified Allergy, Unknown, 10/17/16) PROCHLORPERAZINE (Verified Allergy, Unknown, 08/09/11) Uncoded Allergies: morphine sulfate (Allergy, Mild, 12/12/14) ROS Limited/Unobtainable: No Constitutional: Reports: no symptoms HEENT: Reports: no symptoms Cardiovascular: Reports: no symptoms Respiratory: Reports: no symptoms Gastrointestinal/Abdominal: Reports: diarrhea Genitourinary: Reports: no symptoms Neurologic/Psychiatric: Reports: no symptoms Subjective 41 YO M with short gut syndrome admitted with muscle cramps and diarrhea. Now hypomagnesemia. C/O watery diarrhea X6 today. Nausea improving. Cover tor Int Med-Dr Gaspar. Objective Last Vital Signs Date Time Temp Pulse Resp B/P Pulse Ox O2 Delivery O2 Flow Rate FiO2 10/21/16 11:43 97.5 88 20 146/100 98 Room Air Laboratory Tests Test 10/21/16 05:00 10/21/16 13:46 White Blood Count 6.8 K/UL (4.8-10.8) Red Blood Count 3.03 M/UL (4.70-6.10) L Hemoglobin 10.8 G/DL (14.2-18.0) L Hematocrit 33.3 % (42.0-52.0) L Mean Corpuscular Volume 110 FL (80-99) H Mean Corpuscular Hemoglobin 35.5 PG (27.0-31.0) H Mean Corpuscular Hemoglobin Concent 32.3 G/DL (32.0-36.0) Red Cell Distribution Width 12.2 % (11.6-14.8) Platelet Count 176 K/UL (150-450) Mean Platelet Volume 6.8 FL (6.5-10.1) Neutrophils (%) (Auto) 68.7 % (45.0-75.0) Lymphocytes (%) (Auto) 20.2 % (20.0-45.0) Monocytes (%) (Auto) 9.7 % (1.0-10.0) Eosinophils (%) (Auto) 1.1 % (0.0-3.0) Basophils (%) (Auto) 0.4 % (0.0-2.0) Sodium Level 144 mEQ/L (135-145) Potassium Level 3.8 mEQ/L (3.4-4.9) Chloride Level 108 mEQ/L (98-107) H Carbon Dioxide Level 22 mEQ/L (20-30) Anion Gap 14 (5-15) Blood Urea Nitrogen 10 mg/dL (7-23) Creatinine 2.1 mg/dL (0.7-1.2) H Estimat Glomerular Filtration Rate 42.8 mL/min (>60) Glucose Level 90 mg/dL (74-106) Calcium Level 8.5 mg/dL (8.6-10.2) L Magnesium Level 2.1 mg/dL (1.7-2.5) Urine Color Pale yellow Urine Appearance Clear Urine pH 7 (4.5-8.0) Urine Specific [place] 1.005 (1.005-1.035) Urine Protein Negative (NEGATIVE) Urine Glucose (UA) Negative (NEGATIVE) Urine Ketones Negative (NEGATIVE) Urine Occult Blood Negative (NEGATIVE) Urine Nitrite Negative (NEGATIVE) Urine Bilirubin Negative (NEGATIVE) Urine Urobilinogen Normal MG/DL (0.0-1.0) Urine Leukocyte Esterase Negative (NEGATIVE) Urine RBC 0-2 /HPF (0 - 0) H Urine WBC 0-2 /HPF (0 - 0) Urine Squamous Epithelial Cells Occasional /LPF Urine Bacteria Occasional /HPF (NONE) Urine Random Sodium Pending Urine Opiates Screen Pending Urine Barbiturates Screen Pending Phencyclidine (PCP) Screen Pending Urine Amphetamines Screen Pending Urine Benzodiazepines Screen Pending Urine Cocaine Screen Pending Urine Marijuana (THC) Screen Pending Microbiology Date/Time Source Procedure Growth Status 10/19/16 04:30 Stool Stool Culture - Preliminary NO SALMONELLA,SHIGELLA OR CAMPYLOBACT... Resulted 10/19/16 04:30 Stool Clostridium difficile Toxin Assay - Final Resulted Intake and Output 10/20/16 10/21/16 19:00 07:00 Intake Total 2560 ml 1490 ml Balance 2560 ml 1490 ml Intake Oral 1200 ml IV Total 1360 ml 1490 ml # Voids 3 7 # Bowel Movements 1 Objective General: alert, cooperative, no distress, appears stated age Head: normocephalic, without obvious abnormality, atraumatic Eyes: conjunctivae/corneas clear. PERRL, EOM's intact Throat: lips, mucosa, and tongue normal. MMM Neck: supple, symmetrical, trachea midline, and no JVD Lungs: clear to auscultation bilaterally Heart: regular rate and rhythm, S1, S2 normal, no murmur, click, rub or gallop Abdomen: soft, tender to palp, non-distended, hyperactive bowel sounds; no masses or organomegaly Extremities: extremities normal, atraumatic, no cyanosis or edema Pulses: 2+ and symmetric Skin: skin color, texture, turgor normal; no rashes or lesions Neurologic: grossly normal, no focal deficits Assessment/Plan Problem List: (1) Opiate dependence Assessment & Plan: Cont dilaudid (2) Short bowel syndrome (3) Hypomagnesemia Assessment & Plan: Due to diarrhea; replace magnesium (4) Diarrhea Assessment & Plan: Await stool studies. Due to short bowel syndrome. See GI note. (5) Renal failure (6) Abdominal pain Assessment & Plan: See GI consult. Cont dilaudid (7) GERD (gastroesophageal reflux disease) Assessment & Plan: Cont protonix carafate and mylanta per GI Status: progressing CHAZ GALLEGOS October 21, 2016 14:37
[2016-10-21 16:15] VITALS: BP 130/74
[2016-10-21] MEDS: Cholestyramine 4gm Pkt ORAL SCH (17:55)
[2016-10-21 20:00] VITALS: BP 139/88
[2016-10-21] MEDS: Famotidine 20 MG/ 2ML VIAL IVP SCH (20:56)
--- NOTE | 2016-10-21 22:48 | Pulmonology Progress Note ---
Assessment/Plan Problems: (1) Hypomagnesemia (2) Abdominal pain of unknown etiology (3) CKD (chronic kidney disease) (4) Short bowel syndrome (5) Diarrhea Subjective Allergies: Coded Allergies: MORPHINE (Unverified Allergy, Unknown, 10/17/16) PROCHLORPERAZINE (Verified Allergy, Unknown, 08/09/11) Uncoded Allergies: morphine sulfate (Allergy, Mild, 12/12/14) Objective Last 24 Hour Vital Signs Date Time Temp Pulse Resp B/P Pulse Ox O2 Delivery O2 Flow Rate FiO2 10/21/16 20:00 98.2 82 18 139/88 99 Room Air 10/21/16 16:15 97.6 64 20 130/74 100 Room Air 10/21/16 11:43 97.5 88 20 146/100 98 Room Air 10/21/16 08:15 97.4 61 20 129/86 98 Room Air 10/21/16 04:39 97.7 63 20 131/80 98 Room Air 10/21/16 04:38 97.7 10/20/16 23:54 97.7 67 20 100 Room Air Intake and Output 10/20/16 10/21/16 19:00 07:00 Intake Total 2560 ml 1490 ml Balance 2560 ml 1490 ml Intake Oral 1200 ml IV Total 1360 ml 1490 ml # Voids 3 7 # Bowel Movements 1 Microbiology Date/Time Source Procedure Growth Status 10/19/16 04:30 Stool Stool Culture - Preliminary NO SALMONELLA,SHIGELLA OR CAMPYLOBACT... Resulted 10/19/16 04:30 Stool Clostridium difficile Toxin Assay - Final Resulted Laboratory Tests 10/21/16 05:00: White Blood Count 6.8, Red Blood Count 3.03L, Hemoglobin 10.8L, Hematocrit 33.3L , Mean Corpuscular Volume 110H, Mean Corpuscular Hemoglobin 35.5H, Mean Corpuscular Hemoglobin Concent 32.3, Red Cell Distribution Width 12.2, Platelet Count 176, Mean Platelet Volume 6.8, Neutrophils (%) (Auto) 68.7, Lymphocytes (% ) (Auto) 20.2, Monocytes (%) (Auto) 9.7, Eosinophils (%) (Auto) 1.1, Basophils ( %) (Auto) 0.4, Sodium Level 144, Potassium Level 3.8, Chloride Level 108H, Carbon Dioxide Level 22, Anion Gap 14, Blood Urea Nitrogen 10, Creatinine 2.1H, Estimat Glomerular Filtration Rate 42.8, Glucose Level 90, Calcium Level 8.5L, Magnesium Level 2.1 10/21/16 13:46: Urine Color Pale yellow, Urine Appearance Clear, Urine pH 7, Urine Specific [place] 1.005, Urine Protein Negative, Urine Glucose (UA) Negative, Urine Ketones Negative, Urine Occult Blood Negative, Urine Nitrite Negative, Urine Bilirubin Negative, Urine Urobilinogen Normal, Urine Leukocyte Esterase Negative , Urine RBC 0-2H, Urine WBC 0-2, Urine Squamous Epithelial Cells Occasional, Urine Bacteria Occasional, Urine Random Sodium 122, Urine Opiates Screen PositiveH, Urine Barbiturates Screen Negative, Phencyclidine (PCP) Screen Negative, Urine Amphetamines Screen Negative, Urine Benzodiazepines Screen Negative, Urine Cocaine Screen Negative, Urine Marijuana (THC) Screen Negative Current Medications Medications (Trade) Dose Ordered Sig/Jo Ann Route PRN Reason Start Time Stop Time Status Last Admin Dose Admin Acetaminophen (Tylenol) 650 mg Q4H PRN ORAL fever 10/17/16 19:15 11/16/16 19:14 Al Hydroxide/Mg Hydroxide (Mylanta) 30 ml Q6H PRN ORAL indigestion 10/19/16 13:00 11/18/16 12:59 Cholestyramine Resin (Questran) 4 gm THREE TIMES A DAY ORAL 10/21/16 18:00 11/20/16 17:59 10/21/16 17:55 Clonidine HCl (Catapres) 0.1 mg Q4H PRN ORAL SBP > 160 10/17/16 19:15 11/16/16 19:14 Cyanocobalamin (Vitamin B12) 1,000 mcg DAILY IM 10/21/16 12:00 10/25/16 09:01 10/21/16 12:28 Dextrose (Dextrose 50%) STAT PRN IV Hypoglycemia 10/17/16 19:15 11/16/16 19:14 Diphenhydramine HCl (Benadryl) 50 mg Q4H PRN IV Itching 10/18/16 19:00 11/17/16 18:59 10/21/16 20:57 Diphenoxylate HCl/ Atropine (Lomotil) 2.5 mg Q4H PRN ORAL Diarrhea 10/21/16 13:45 11/20/16 13:44 Ergocalciferol (Drisdol) 50,000 intlu QWEEK ORAL 10/19/16 10:00 11/18/16 09:59 10/19/16 11:04 Famotidine (Pepcid I.v.) 20 mg Q12HR IVP 10/21/16 21:00 11/20/16 20:59 10/21/16 20:56 Folic Acid (Folate) 2 mg BID ORAL 10/21/16 11:00 11/20/16 10:59 10/21/16 17:55 Heparin Sodium (Porcine) (Heparin 5000 units/ml) 5,000 units EVERY 12 HOURS SUBQ 10/17/16 21:00 11/16/16 20:59 10/21/16 20:58 Hydromorphone HCl (Dilaudid) 1 mg Q4H PRN IVP MODERATE PAIN 10/17/16 21:30 10/24/16 21:29 Hydromorphone HCl 2 mg 2 mg Q4H PRN IVP SEVERE PAIN 10/17/16 21:30 10/24/16 21:29 10/21/16 20:57 Ondansetron HCl (Zofran) 4 mg Q6H PRN IVP Nausea & Vomiting 10/17/16 19:15 11/16/16 19:14 10/20/16 08:16 Pantoprazole (Protonix) 40 mg EVERY 12 HOURS ORAL 10/21/16 21:00 11/20/16 20:59 10/21/16 20:57 Polyethylene Glycol (Miralax) 17 gm HSPRN PRN ORAL Constipation 10/17/16 19:15 11/16/16 19:14 Sodium Bicarbonate/ Sodium Chloride (Sodium Bicarbonate/0.45% NS 1000ml) 1,050 ml @ 125 mls/hr Q8H24M IV 10/18/16 17:30 11/17/16 17:29 10/21/16 20:58 Sucralfate (Carafate) 1 gm BEFORE MEALS ORAL 10/19/16 16:30 11/18/16 16:29 10/21/16 15:58 Zolpidem Tartrate (Ambien) 5 mg HSPRN PRN ORAL Insomnia 10/17/16 19:15 11/16/16 19:14 RUBY DUNLAP October 21, 2016 22:48
[2016-10-21 23:49] VITALS: BP 131/80
[2016-10-22] MEDS: DiphenhydrAMINE 50mg/ml Inj IV PRN ×3 (00:56→08:56)
[2016-10-22 04:00] VITALS: BP 143/99
[2016-10-22] MEDS: Sodium Bicarbonate 50 ML in 1/2 NS 1000ml 1,000 ML IV SCH (05:01)
[2016-10-22] MEDS: Sucralfate 1gm tab ORAL SCH (05:48)
[2016-10-22 07:25] LABS: ALBUMIN/GLOBULIN RATIO 1.5 (1.0-2.7); CALCIUM 8.8 mg/dL (8.6-10.2); CREATININE 2.2 mg/dL (0.7-1.2); GLOMERULAR FILTRATION RATE 40.6 mL/min (>60); MAGNESIUM 2.1 mg/dL (1.7-2.5); POTASSIUM 3.8 mEQ/L (3.4-4.9); URIC ACID 7.1 mg/dL (3.0-7.5)
[2016-10-22 07:33] LABS: BASOPHILS % (AUTO) 0.7 % (0.0-2.0); LYMPHOCYTES % (AUTO) 22.8 % (20.0-45.0); MEAN CORPUSCULAR HGB CONC 32.8 G/DL (32.0-36.0); MEAN CORPUSCULAR VOLUME 110 FL (80-99); MEAN PLATELET VOLUME 7.8 FL (6.5-10.1); MONOCYTES % (AUTO) 10.1 % (1.0-10.0); NEUTROPHILS % (AUTO) 65.4 % (45.0-75.0); PLATELET COUNT 185 K/UL (150-450); RED BLOOD COUNT 3.03 M/UL (4.70-6.10); RED CELL DISTRIBUTION WIDTH 12.3 % (11.6-14.8); WHITE BLOOD COUNT 5.3 K/UL (4.8-10.8)
[2016-10-22 07:54] VITALS: BP 137/85
[2016-10-22] MEDS: Cholestyramine 4gm Pkt ORAL SCH ×2 (08:56→09:00)
[2016-10-22] MEDS: Vitamin B12 1000mcg/ml Inj IM SCH (08:56)
[2016-10-22] MEDS: Heparin 5000 units/ml inj SUBQ SCH (09:00)
[2016-10-22] MEDS: Famotidine 20 MG/ 2ML VIAL IVP SCH (09:04)
--- NOTE | 2016-10-22 09:28 | General Progress Note ---
Assessment/Plan Status: stable Assessment/Plan status: Hypo Magnesium Acute on Chronic renal failure Short bowel syndrome Low B12 Plan: MIRIAM renal : unremarkable B12 and Folate IV hydrate, Bicarb and Mag Monitor lytes and Chemistries PO Vit D ? DC planning? Subjective ROS Limited/Unobtainable: No Constitutional: Reports: malaise Allergies: Coded Allergies: MORPHINE (Unverified Allergy, Unknown, 10/17/16) PROCHLORPERAZINE (Verified Allergy, Unknown, 08/09/11) Uncoded Allergies: morphine sulfate (Allergy, Mild, 12/12/14) Objective Last 24 Hour Vital Signs Date Time Temp Pulse Resp B/P Pulse Ox O2 Delivery O2 Flow Rate FiO2 10/22/16 07:54 98.2 64 14 137/85 97 Room Air 10/22/16 04:00 98.2 62 18 143/99 99 Room Air 10/21/16 23:49 98.1 66 20 131/80 97 Room Air 10/21/16 20:00 98.2 82 18 139/88 99 Room Air 10/21/16 16:15 97.6 64 20 130/74 100 Room Air 10/21/16 11:43 97.5 88 20 146/100 98 Room Air Intake and Output 10/21/16 10/22/16 19:00 07:00 Intake Total 1700 ml 1750 ml Balance 1700 ml 1750 ml Intake Oral 800 ml 500 ml IV Total 900 ml 1250 ml # Voids 1 4 # Bowel Movements 1 Laboratory Tests 10/21/16 13:46: Urine Color Pale yellow, Urine Appearance Clear, Urine pH 7, Urine Specific [place] 1.005, Urine Protein Negative, Urine Glucose (UA) Negative, Urine Ketones Negative, Urine Occult Blood Negative, Urine Nitrite Negative, Urine Bilirubin Negative, Urine Urobilinogen Normal, Urine Leukocyte Esterase Negative , Urine RBC 0-2H, Urine WBC 0-2, Urine Squamous Epithelial Cells Occasional, Urine Bacteria Occasional, Urine Random Sodium 122, Urine Opiates Screen PositiveH, Urine Barbiturates Screen Negative, Phencyclidine (PCP) Screen Negative, Urine Amphetamines Screen Negative, Urine Benzodiazepines Screen Negative, Urine Cocaine Screen Negative, Urine Marijuana (THC) Screen Negative 10/22/16 05:00: White Blood Count 5.3, Red Blood Count 3.03L, Hemoglobin 10.9L, Hematocrit 33.3L , Mean Corpuscular Volume 110H, Mean Corpuscular Hemoglobin 36.0H, Mean Corpuscular Hemoglobin Concent 32.8, Red Cell Distribution Width 12.3, Platelet Count 185, Mean Platelet Volume 7.8, Neutrophils (%) (Auto) 65.4, Lymphocytes (% ) (Auto) 22.8, Monocytes (%) (Auto) 10.1H, Eosinophils (%) (Auto) 1.0, Basophils (%) (Auto) 0.7, Sodium Level 144, Potassium Level 3.8, Chloride Level 105, Carbon Dioxide Level 27, Anion Gap 12, Blood Urea Nitrogen 10, Creatinine 2.2H, Estimat Glomerular Filtration Rate 40.6, Glucose Level 101, Uric Acid 7.1 , Calcium Level 8.8, Phosphorus Level 2.0L, Magnesium Level 2.1, Total Bilirubin 0.8, Aspartate Amino Transf (AST/SGOT) 23, Alanine Aminotransferase ( ALT/SGPT) 21, Alkaline Phosphatase 79, Total Protein 6.0L, Albumin 3.6, Globulin 2.4, Albumin/Globulin Ratio 1.5 Height (Feet): 5 Height (Inches): 9.00 Weight (Pounds): 175 General Appearance: no apparent distress Objective no change in PE DOMINIC STODDARD October 22, 2016 09:28
--- NOTE | 2016-10-22 09:35 | GI Progress Note ---
Assessment/Plan Problems: (1) GERD (gastroesophageal reflux disease) ICD Codes: K21.9 - Gastro-esophageal reflux disease without esophagitis SNOMED: 693434319 (2) Abdominal pain ICD Codes: R10.9 - Unspecified abdominal pain SNOMED: 13660604 (3) Diarrhea ICD Codes: R19.7 - Diarrhea, unspecified SNOMED: 91268113 (4) Hypomagnesemia ICD Codes: E83.42 - Hypomagnesemia SNOMED: 084040865 (5) Short bowel syndrome ICD Codes: K91.2 - Postsurgical malabsorption, not elsewhere classified SNOMED: 22863088 (6) Anemia ICD Codes: D64.9 - Anemia, unspecified SNOMED: 832007330 Status: stable Status Narrative Discussed with Dr. Alegre. Assessment/Plan Assessment - chronic diarrhea - short gut syndrome - recurrent pain - electrolyte abnormalities - N/V - H/A - Cdiff negative Recommendations ok DC per GI standpoint cholestyramine for diarrhea associated with short gut syndrome lifelong B12 supplementation avoid high carbohydrate diet which may induce osmotic diarrhea H2B monitor H&H, transfuse prn lomotil prn electrolyte replacement fu labs Subjective Subjective diarrhea Objective Last 24 Hour Vital Signs Date Time Temp Pulse Resp B/P Pulse Ox O2 Delivery O2 Flow Rate FiO2 10/22/16 09:27 98.2 10/22/16 07:54 98.2 64 14 137/85 97 Room Air 10/22/16 04:00 98.2 62 18 143/99 99 Room Air 10/21/16 23:49 98.1 66 20 131/80 97 Room Air 10/21/16 20:00 98.2 82 18 139/88 99 Room Air 10/21/16 16:15 97.6 64 20 130/74 100 Room Air 10/21/16 11:43 97.5 88 20 146/100 98 Room Air Intake and Output 10/21/16 10/22/16 19:00 07:00 Intake Total 1700 ml 1750 ml Balance 1700 ml 1750 ml Intake Oral 800 ml 500 ml IV Total 900 ml 1250 ml # Voids 1 4 # Bowel Movements 1 Laboratory Tests Test 10/21/16 13:46 10/22/16 05:00 Urine Color Pale yellow Urine Appearance Clear Urine pH 7 (4.5-8.0) Urine Specific [place] 1.005 (1.005-1.035) Urine Protein Negative (NEGATIVE) Urine Glucose (UA) Negative (NEGATIVE) Urine Ketones Negative (NEGATIVE) Urine Occult Blood Negative (NEGATIVE) Urine Nitrite Negative (NEGATIVE) Urine Bilirubin Negative (NEGATIVE) Urine Urobilinogen Normal MG/DL (0.0-1.0) Urine Leukocyte Esterase Negative (NEGATIVE) Urine RBC 0-2 /HPF (0 - 0) H Urine WBC 0-2 /HPF (0 - 0) Urine Squamous Epithelial Cells Occasional /LPF Urine Bacteria Occasional /HPF (NONE) Urine Random Sodium 122 mmol/L Urine Opiates Screen Positive (NEGATIVE) H Urine Barbiturates Screen Negative (NEGATIVE) Phencyclidine (PCP) Screen Negative (NEGATIVE) Urine Amphetamines Screen Negative (NEGATIVE) Urine Benzodiazepines Screen Negative (NEGATIVE) Urine Cocaine Screen Negative (NEGATIVE) Urine Marijuana (THC) Screen Negative (NEGATIVE) White Blood Count 5.3 K/UL (4.8-10.8) Red Blood Count 3.03 M/UL (4.70-6.10) L Hemoglobin 10.9 G/DL (14.2-18.0) L Hematocrit 33.3 % (42.0-52.0) L Mean Corpuscular Volume 110 FL (80-99) H Mean Corpuscular Hemoglobin 36.0 PG (27.0-31.0) H Mean Corpuscular Hemoglobin Concent 32.8 G/DL (32.0-36.0) Red Cell Distribution Width 12.3 % (11.6-14.8) Platelet Count 185 K/UL (150-450) Mean Platelet Volume 7.8 FL (6.5-10.1) Neutrophils (%) (Auto) 65.4 % (45.0-75.0) Lymphocytes (%) (Auto) 22.8 % (20.0-45.0) Monocytes (%) (Auto) 10.1 % (1.0-10.0) H Eosinophils (%) (Auto) 1.0 % (0.0-3.0) Basophils (%) (Auto) 0.7 % (0.0-2.0) Sodium Level 144 mEQ/L (135-145) Potassium Level 3.8 mEQ/L (3.4-4.9) Chloride Level 105 mEQ/L (98-107) Carbon Dioxide Level 27 mEQ/L (20-30) Anion Gap 12 (5-15) Blood Urea Nitrogen 10 mg/dL (7-23) Creatinine 2.2 mg/dL (0.7-1.2) H Estimat Glomerular Filtration Rate 40.6 mL/min (>60) Glucose Level 101 mg/dL (74-106) Uric Acid 7.1 mg/dL (3.0-7.5) Calcium Level 8.8 mg/dL (8.6-10.2) Phosphorus Level 2.0 mg/dL (2.5-4.8) L Magnesium Level 2.1 mg/dL (1.7-2.5) Total Bilirubin 0.8 mg/dL (0.0-1.2) Aspartate Amino Transf (AST/SGOT) 23 U/L (5-40) Alanine Aminotransferase (ALT/SGPT) 21 U/L (3-41) Alkaline Phosphatase 79 U/L (40-129) Total Protein 6.0 g/dL (6.6-8.7) L Albumin 3.6 g/dL (3.5-5.2) Globulin 2.4 g/dL Albumin/Globulin Ratio 1.5 (1.0-2.7) Height (Feet): 5 Height (Inches): 9.00 Weight (Pounds): 175 General Appearance: no apparent distress, alert Cardiovascular: normal rate Respiratory/Chest: normal breath sounds, no respiratory distress Abdominal Exam: normal bowel sounds, non tender, soft Extremities: normal range of motion Isamar Treviño N.P. October 22, 2016 09:35
[2016-10-22] MEDS ORDERED: Heplock Flush 100 units/ml 3 ml syr INJ ONE (10:00)
[2016-10-22] MEDS ORDERED: Phospha 250 Neutral tab ORAL SCH (10:00)
[2016-10-22] MEDS ORDERED: D5 1/2NS 1000ml IV ONE (11:02)
[2016-10-22] MEDS ORDERED: Tubing IV Secondary IV ONE (11:02)
--- NOTE | 2016-10-22 22:53 | Pulmonology Progress Note ---
Assessment/Plan Problems: (1) Hypomagnesemia (2) Abdominal pain of unknown etiology (3) CKD (chronic kidney disease) (4) Short bowel syndrome (5) Diarrhea Assessment/Plan improving electrolytes better c diff and other cultures negative dc home today Subjective ROS Limited/Unobtainable: No Interval Events: was seen earlier thoday. feeling better Allergies: Coded Allergies: MORPHINE (Unverified Allergy, Unknown, 10/17/16) PROCHLORPERAZINE (Verified Allergy, Unknown, 08/09/11) Uncoded Allergies: morphine sulfate (Allergy, Mild, 12/12/14) Objective Last 24 Hour Vital Signs Date Time Temp Pulse Resp B/P Pulse Ox O2 Delivery O2 Flow Rate FiO2 10/22/16 09:27 98.2 10/22/16 07:54 98.2 64 14 137/85 97 Room Air 10/22/16 04:00 98.2 62 18 143/99 99 Room Air 10/21/16 23:49 98.1 66 20 131/80 97 Room Air Intake and Output 10/21/16 10/22/16 19:00 07:00 Intake Total 1700 ml 1750 ml Balance 1700 ml 1750 ml Intake Oral 800 ml 500 ml IV Total 900 ml 1250 ml # Voids 1 4 # Bowel Movements 1 General Appearance: WD/WN Respiratory/Chest: chest wall non-tender, lungs clear Cardiovascular: normal peripheral pulses, normal rate Abdomen: no organomegaly Genitourinary: normal external genitalia Extremities: no cyanosis Laboratory Tests 10/22/16 05:00: White Blood Count 5.3, Red Blood Count 3.03L, Hemoglobin 10.9L, Hematocrit 33.3L , Mean Corpuscular Volume 110H, Mean Corpuscular Hemoglobin 36.0H, Mean Corpuscular Hemoglobin Concent 32.8, Red Cell Distribution Width 12.3, Platelet Count 185, Mean Platelet Volume 7.8, Neutrophils (%) (Auto) 65.4, Lymphocytes (% ) (Auto) 22.8, Monocytes (%) (Auto) 10.1H, Eosinophils (%) (Auto) 1.0, Basophils (%) (Auto) 0.7, Sodium Level 144, Potassium Level 3.8, Chloride Level 105, Carbon Dioxide Level 27, Anion Gap 12, Blood Urea Nitrogen 10, Creatinine 2.2H, Estimat Glomerular Filtration Rate 40.6, Glucose Level 101, Uric Acid 7.1 , Calcium Level 8.8, Phosphorus Level 2.0L, Magnesium Level 2.1, Total Bilirubin 0.8, Aspartate Amino Transf (AST/SGOT) 23, Alanine Aminotransferase ( ALT/SGPT) 21, Alkaline Phosphatase 79, Total Protein 6.0L, Albumin 3.6, Globulin 2.4, Albumin/Globulin Ratio 1.5 RUBY DUNLAP October 22, 2016 22:53
--- NOTE | 2016-10-23 19:58 | Discharge Summary ---
Discharge Summary Hospital Course Date of Admission October 17, 2016 at 17:23 Date of Discharge October 22, 2016 at 11:03 Admitting Diagnosis hypomagnesimia HPI Victoriano Ramirez Jorge is a 41 year old male who was admitted on October 17, 2016 at 17: 23 for Hypomagnesimia Hospital Course [id number] Discharge Discharge Disposition Patient was discharged to Home (01) Discharge Diagnoses: Fe Millard NP October 23, 2016 19:58
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
== END 2016-10-22 11:03 | disposition home or self-care (01) | DRG 683 ==
LOC: ENRESERVDT → ENRESERVTM → EMR 16:25 → 4W 17:23 → EDBEDREQ 17:32 → 4W 10-18 22:29
DX: N17.9 Acute kidney failure, unspecified (principal); K91.2 Postsurgical malabsorption, not elsewhere classified; F11.20 Opioid dependence, uncomplicated; E53.8 Deficiency of other specified B group vitamins; I12.9 Hypertensive chronic kidney disease with stage 1 through stage 4 chronic kidney disease, or unspecified chronic kidney disease; E83.42 Hypomagnesemia; E86.0 Dehydration; R19.7 Diarrhea, unspecified; N18.9 Chronic kidney disease, unspecified; W34.00XS Accidental discharge from unspecified firearms or gun, sequela; Z88.6 Allergy status to analgesic agent; R25.2 Cramp and spasm; D64.9 Anemia, unspecified; Z90.49 Acquired absence of other specified parts of digestive tract; K21.9 Gastro-esophageal reflux disease without esophagitis; G89.29 Other chronic pain; R10.9 Unspecified abdominal pain
CPT/HCPCS: 36415; 76775; 80048; 80053; 80061; 80300; 81001; 81003; 82248; 82436; 82533; 82550; 82607; 82728; 82746; 82977; 83036; 83540; 83550; 83690; 83735; 83930; 83935; 84100; 84133; 84300; 84439; 84443; 84481; 84550; 85007; 85025; 86140; 87045; 87324; 89050; C9399; J2405

== ENCOUNTER 2016-10-29 11:49 | Inpatient (IN) | payer MEDICARE, OTHER ==
[~2016-10-29] VITALS: Ht 172.7 cm; Wt 72.6 kg
[~2016-10-29 11:49] MED LIST changes: +MULTI-DELYN237 ML ORAL
[2016-10-29 12:06] VITALS: BP 120/80
[2016-10-29] MEDS ORDERED: HYDROmorphone 1mg/ml Carpuject IVP ONE (12:15)
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
[2016-10-29 12:59] LABS: MEAN CORPUSCULAR HEMOGLOBIN 34.1 PG (27.0-31.0); MEAN CORPUSCULAR HGB CONC 30.6 G/DL (32.0-36.0); MEAN CORPUSCULAR VOLUME 111 FL (80-99); MEAN PLATELET VOLUME 6.5 FL (6.5-10.1); PLATELET COUNT 234 K/UL (150-450); RED BLOOD COUNT 3.61 M/UL (4.70-6.10); RED CELL DISTRIBUTION WIDTH 11.9 % (11.6-14.8); WHITE BLOOD COUNT 8.1 K/UL (4.8-10.8)
[2016-10-29 13:01] LABS: PROTHROMBIN TIME 10.5 SEC (9.30-11.50)
[2016-10-29 13:11] LABS: ALANINE AMINOTRANSFERASE 29 U/L (3-41); ALBUMIN/GLOBULIN RATIO 1.2 (1.0-2.7); ANION GAP 18 (5-15); ASPARTATE AMINO TRANSFERASE 27 U/L (5-40); CALCIUM 9.1 mg/dL (8.6-10.2); CARBON DIOXIDE 16 mEQ/L (20-30); CHLORIDE 107 mEQ/L (98-107); CREATININE 2.3 mg/dL (0.7-1.2); GLOMERULAR FILTRATION RATE 38.5 mL/min (>60); HEMOLYSIS 14; LIPASE 31 U/L (< 60); POTASSIUM 4.5 mEQ/L (3.4-4.9); SODIUM 141 mEQ/L (135-145); TOTAL PROTEIN 7.8 g/dL (6.6-8.7)
[2016-10-29 13:14] LABS: MAGNESIUM 0.9 mg/dL (1.7-2.5)
[2016-10-29 13:32] LABS: BILIRUBIN,DIRECT 0.2 mg/dL (0.1-0.3)
--- NOTE | 2016-10-29 13:38 | Diagnostic Imaging Report ---
Indications: Abdominal pain, diarrhea Technique: Portable supine AP abdomen Findings: Comparison: 05/25/2016 Multiple surgical clips including bowel anastomosis clips are again noted in the right upper quadrant. Focal gaseous distention of small bowel in the left lower quadrant persists, decreased. Gas persists throughout nondilated colon to the rectum. IVC filter remains in place, relatively low in position, unchanged. Visualized skeletal structures are unremarkable. IMPRESSION: Isolated small bowel distention left lower quadrant. Additional fluid-filled, distended small bowel not excludable. This has been present on multiple previous examinations and most likely represents ileus. Early obstruction not entirely excludable. Stable chronic changes as described
[2016-10-29 14:15] LABS: APPEARANCE,URINE CLEAR; KETONES,URINE NEGATIVE (NEGATIVE); LEUKOCYTE ESTERASE ,URINE NEGATIVE (NEGATIVE); NITRITE,URINE NEGATIVE (NEGATIVE); PH,URINE 6 (4.5-8.0); PROTEIN,URINE 2+ (NEGATIVE); UROBILINOGEN,URINE NORMAL MG/DL (0.0-1.0)
[2016-10-29 14:27] LABS: BACTERIA,URINE FEW /HPF; RBC,URINE 0-2 /HPF (0 - 0); SQUAMOUS EPITHELIAL CELL,UR OCCASIONAL /LPF (NONE/OCC)
[2016-10-29] MEDS ORDERED: LORazepam Inj 2mg/ml 1ml IV PRN (14:30)
[2016-10-29] MEDS ORDERED: oxyCODONE 15mg IR tab ORAL PRN (14:30)
[2016-10-29] MEDS ORDERED: Nitroglycerin Subl 0.4mg tab (Bottle Of 25) SL PRN (14:30)
[2016-10-29] MEDS ORDERED: Mylanta II UD 30ml ORAL PRN (14:30)
[2016-10-29] MEDS ORDERED: Miralax 17gm pkt ORAL PRN (14:30)
[2016-10-29] MEDS ORDERED: Morphine Sulfate 2mg/ml Inj IVP PRN ×2 (14:30→15:15)
[2016-10-29] MEDS ORDERED: Metoclopramide 10mg/2ml Inj IVP PRN (14:30)
[2016-10-29 14:53] LABS: BAND NEUTROPHILS % (MANUAL) 0 % (0-8); BASOPHILS % (MANUAL) 0 % (0-2); EOSINOPHILS % (MANUAL) 0 % (0-3); LYMPHOCYTES % (MANUAL) 20 % (20-45); MACROCYTES 2+; NEUTROPHILS % (MANUAL) 74 % (45-75); PLATELET ESTIMATE ADEQUATE; PLATELET MORPHOLOGY NORMAL; TOTAL CELLS COUNTED 100
[2016-10-29] MEDS ORDERED: HYDROmorphone 1mg/ml Carpuject IVP PRN ×3 (15:15→18:00)
[2016-10-29 15:33] VITALS: BP 121/78
--- NOTE | 2016-10-29 15:34 | Consultation ---
History of Present Illness General Chief Complaint: Abdominal Pain Present Illness Allergies: Coded Allergies: MORPHINE (Unverified Allergy, Unknown, 10/17/16) PROCHLORPERAZINE (Verified Allergy, Unknown, 08/09/11) Medication History Scheduled Diphenoxylate Hcl/Atropine (Lomotil Tablet), 2.5 TAB ORAL after meals, (Reported ) Multivitamin Liquid* (Multi-Delyn*), 5 ML ORAL DAILY, (Reported) Simethicone (Simethicone Gas Relief), 120 MG PO BID, (Reported) Scheduled PRN Oxycodone Hcl (Oxycontin), 30 MG ORAL Q6HR PRN for Pain Scale (6-10), (Reported) Patient History Healthcare decision maker Resuscitation status Advanced Directive on File Physical Exam Last 24 Hour Vital Signs Date Time Temp Pulse Resp B/P Pulse Ox O2 Delivery O2 Flow Rate FiO2 10/29/16 14:52 98.2 68 18 140/85 98 Room Air 10/29/16 12:50 98.2 10/29/16 12:06 98.2 18 120/80 98 Room Air 10/29/16 12:00 98.2 84 18 120/80 98 Room Air Laboratory Tests Test 10/29/16 12:40 10/29/16 14:00 White Blood Count 8.1 K/UL (4.8-10.8) Red Blood Count 3.61 M/UL (4.70-6.10) L Hemoglobin 12.3 G/DL (14.2-18.0) L Hematocrit 40.2 % (42.0-52.0) L Mean Corpuscular Volume 111 FL (80-99) H Mean Corpuscular Hemoglobin 34.1 PG (27.0-31.0) H Mean Corpuscular Hemoglobin Concent 30.6 G/DL (32.0-36.0) L Red Cell Distribution Width 11.9 % (11.6-14.8) Platelet Count 234 K/UL (150-450) Mean Platelet Volume 6.5 FL (6.5-10.1) Neutrophils (%) (Auto) % (45.0-75.0) Lymphocytes (%) (Auto) % (20.0-45.0) Monocytes (%) (Auto) % (1.0-10.0) Eosinophils (%) (Auto) % (0.0-3.0) Basophils (%) (Auto) % (0.0-2.0) Differential Total Cells Counted 100 Neutrophils % (Manual) 74 % (45-75) Lymphocytes % (Manual) 20 % (20-45) Monocytes % (Manual) 6 % (1-10) Eosinophils % (Manual) 0 % (0-3) Basophils % (Manual) 0 % (0-2) Band Neutrophils 0 % (0-8) Platelet Estimate Adequate Platelet Morphology Normal Red Blood Cell Morphology Macrocytosis 2+ Prothrombin Time 10.5 SEC (9.30-11.50) Prothromb Time International Ratio 1.0 (0.9-1.1) Activated Partial Thromboplast Time 25 SEC (23-33) Sodium Level 141 mEQ/L (135-145) Potassium Level 4.5 mEQ/L (3.4-4.9) Chloride Level 107 mEQ/L (98-107) Carbon Dioxide Level 16 mEQ/L (20-30) L Anion Gap 18 (5-15) H Blood Urea Nitrogen 18 mg/dL (7-23) Creatinine 2.3 mg/dL (0.7-1.2) H Estimat Glomerular Filtration Rate 38.5 mL/min (>60) Glucose Level 93 mg/dL (74-106) Calcium Level 9.1 mg/dL (8.6-10.2) Magnesium Level 0.9 mg/dL (1.7-2.5) *L Total Bilirubin 1.2 mg/dL (0.0-1.2) Direct Bilirubin 0.2 mg/dL (0.1-0.3) Aspartate Amino Transf (AST/SGOT) 27 U/L (5-40) Alanine Aminotransferase (ALT/SGPT) 29 U/L (3-41) Alkaline Phosphatase 76 U/L (40-129) Total Creatine Kinase 464 U/L (38-174) H Total Protein 7.8 g/dL (6.6-8.7) Albumin 4.4 g/dL (3.5-5.2) Globulin 3.4 g/dL Albumin/Globulin Ratio 1.2 (1.0-2.7) Lipase 31 U/L (< 60) Urine Color Yellow Urine Appearance Clear Urine pH 6 (4.5-8.0) Urine Specific [place] 1.015 (1.005-1.035) Urine Protein 2+ (NEGATIVE) H Urine Glucose (UA) Negative (NEGATIVE) Urine Ketones Negative (NEGATIVE) Urine Occult Blood Negative (NEGATIVE) Urine Nitrite Negative (NEGATIVE) Urine Bilirubin Negative (NEGATIVE) Urine Urobilinogen Normal MG/DL (0.0-1.0) Urine Leukocyte Esterase Negative (NEGATIVE) Urine RBC 0-2 /HPF (0 - 0) H Urine WBC 2-4 /HPF (0 - 0) Urine Squamous Epithelial Cells Occasional /LPF Urine Bacteria Few /HPF (NONE) Urine Opiates Screen Negative (NEGATIVE) Urine Barbiturates Screen Negative (NEGATIVE) Phencyclidine (PCP) Screen Negative (NEGATIVE) Urine Amphetamines Screen Negative (NEGATIVE) Urine Benzodiazepines Screen Negative (NEGATIVE) Urine Cocaine Screen Negative (NEGATIVE) Urine Marijuana (THC) Screen Negative (NEGATIVE) Height (Feet): 5 Height (Inches): 8.00 Weight (Pounds): 160 Medications Current Medications Medications (Trade) Dose Ordered Sig/Jo Ann Route PRN Reason Start Time Stop Time Status Last Admin Dose Admin Acetaminophen (Tylenol) 650 mg Q4H PRN ORAL fever 10/29/16 14:30 11/28/16 14:29 Al Hydroxide/Mg Hydroxide (Mylanta II) 30 ml Q6H PRN ORAL dyspepsia 10/29/16 14:30 11/28/16 14:29 Dextrose (Dextrose 50%) STAT PRN IV Hypoglycemia 10/29/16 14:30 11/28/16 14:29 Dextrose/Sodium Chloride (D5 0.45% NS) 1,000 ml @ 75 mls/hr [id number] IV 10/29/16 16:00 11/28/16 15:59 Diphenhydramine HCl (Benadryl) 25 mg Q6H PRN ORAL Itching/Pruritis 10/29/16 14:30 11/28/16 14:29 Heparin Sodium (Porcine) (Heparin 5000 units/ml) 5,000 units EVERY 12 HOURS SUBQ 10/29/16 21:00 11/28/16 20:59 Hydromorphone HCl 1 mg 1 mg Q4H PRN IVP For Pain 10/29/16 15:15 11/05/16 15:14 UNV Lorazepam (Ativan 2mg/ml 1ml) 1 mg Q4H PRN IV agitation 10/29/16 14:30 11/05/16 14:29 Magnesium Sulfate (Magnesium Sulfate 1gm/100ml) 100 ml @ 100 mls/hr Q1H IVPB 10/29/16 15:15 10/29/16 17:14 UNV Metoclopramide HCl (Reglan) 10 mg Q6H PRN IVP SEVERE NAUSEA 10/29/16 14:30 11/28/16 14:29 Morphine Sulfate (Morphine Sulfate) 4 mg EVERY 4 HOURS PRN IVP severe Pain (Pain Scale 7-10) 10/29/16 15:15 11/05/16 15:14 UNV Nitroglycerin (Ntg) 0.4 mg Q5M X 3 DOSES PRN SL Prn Chest Pain 10/29/16 14:30 11/28/16 14:29 Ondansetron HCl (Zofran) 4 mg Q6H PRN IVP Nausea & Vomiting 10/29/16 14:30 11/28/16 14:29 Oxycodone HCl 30 mg 30 mg Q4H PRN ORAL pain 5-7 10/29/16 14:30 11/05/16 14:29 UNV Pantoprazole (Protonix) 40 mg DAILY IV 10/30/16 09:00 11/29/16 08:59 Polyethylene Glycol (Miralax) 17 gm HSPRN PRN ORAL Constipation 10/29/16 14:30 11/28/16 14:29 Temazepam (Restoril) 15 mg HSPRN PRN ORAL Insomnia 10/29/16 14:30 11/05/16 14:29 RUBY DUNLAP October 29, 2016 15:34
[2016-10-29] MEDS: D5 1/2NS 1,000 ML IV SCH (16:04)
--- NOTE | 2016-10-29 18:02 | History & Physical ---
History and Physical History & Physicial Dictated for Int Med-Dr Gaspar no. [id number]. MAURO GALLEGOS October 29, 2016 18:02
[2016-10-29] MEDS: DiphenhydrAMINE 50mg/ml Inj IVP PRN (18:23)
[2016-10-29 20:00] VITALS: BP 118/71
[2016-10-29] MEDS: Heparin 5000 units/ml inj SUBQ SCH (20:56)
[2016-10-29] MEDS: HYDROmorphone 1mg/ml Carpuject IVP PRN (21:07)
[2016-10-29] MEDS ORDERED: Lomotil 2.5mg tab ORAL PRN (23:45)
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
[2016-10-30] MEDS: DiphenhydrAMINE 50mg/ml Inj IVP PRN ×5 (01:07→20:12)
[2016-10-30] MEDS: HYDROmorphone 1mg/ml Carpuject IVP PRN ×3 (01:07→09:23)
[2016-10-30 04:00] VITALS: BP 115/73
[2016-10-30] MEDS: D5 1/2NS 1,000 ML IV SCH ×2 (05:15→18:13)
[2016-10-30 06:31] LABS: MEAN CORPUSCULAR HEMOGLOBIN 35.7 PG (27.0-31.0); MEAN CORPUSCULAR HGB CONC 31.8 G/DL (32.0-36.0); MEAN CORPUSCULAR VOLUME 112 FL (80-99); MEAN PLATELET VOLUME 6.7 FL (6.5-10.1); PLATELET COUNT 200 K/UL (150-450); RED BLOOD COUNT 3.07 M/UL (4.70-6.10); RED CELL DISTRIBUTION WIDTH 12.1 % (11.6-14.8); WHITE BLOOD COUNT 6.2 K/UL (4.8-10.8)
[2016-10-30 06:47] LABS: MAGNESIUM 1.5 mg/dL (1.7-2.5); PHOSPHORUS 3.9 mg/dL (2.5-4.8)
[2016-10-30 06:49] LABS: ALBUMIN/GLOBULIN RATIO 1.5 (1.0-2.7); CALCIUM 8.4 mg/dL (8.6-10.2); CREATININE 2.4 mg/dL (0.7-1.2); GLOMERULAR FILTRATION RATE 36.7 mL/min (>60); POTASSIUM 4.1 mEQ/L (3.4-4.9); TOTAL PROTEIN 6.4 g/dL (6.6-8.7)
[2016-10-30 07:52] VITALS: BP 120/81
[2016-10-30] MEDS ORDERED: Famotidine 20 MG/ 2ML VIAL IVP SCH (09:00)
[2016-10-30] MEDS: Cholestyramine 4gm Pkt ORAL SCH ×3 (09:39→18:12)
[2016-10-30] MEDS: Pantoprazole Inj IV SCH (09:43)
[2016-10-30] MEDS: Heparin 5000 units/ml inj SUBQ SCH ×2 (09:50→20:23)
[2016-10-30 10:30] LABS: BAND NEUTROPHILS % (MANUAL) 0 % (0-8); BASOPHILS % (MANUAL) 0 % (0-2); EOSINOPHILS % (MANUAL) 1 % (0-3); LYMPHOCYTES % (MANUAL) 29 % (20-45); NEUTROPHILS % (MANUAL) 64 % (45-75); PLATELET ESTIMATE ADEQUATE; PLATELET MORPHOLOGY NORMAL; TOTAL CELLS COUNTED 100
[2016-10-30 10:33] LABS: MACROCYTES 1+
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
[2016-10-30 11:53] VITALS: BP 113/70
[2016-10-30] MEDS ORDERED: Vitamin D 50,000 units cap ORAL SCH (13:00)
--- NOTE | 2016-10-30 13:48 | Diagnostic Imaging Report ---
Indication:Abdominal pain Technique: Grayscale and duplex Doppler imaging of the abdomen performed. Comparison: None Findings: The liver, demonstrated part of the pancreas, aorta and IVC, both kidneys, spleen appear unremarkable. Gallbladder is absent. CBD is 6 mm. There is a small cyst in the right kidney measuring 1.2 cm. There is no biliary ductal dilatation identified. Doppler evaluation of the main portal vein shows patency. There is no ascites. No hydronephrosis seen. Impression: No acute findings. Right renal cyst Status post cholecystectomy
[2016-10-30] MEDS: Vitamin B12 1000mcg/ml Inj IM SCH (15:27)
[2016-10-30 15:43] VITALS: BP 112/69
--- NOTE | 2016-10-30 17:47 | Internal Med Progress Note ---
Subjective Date of Service: October 30, 2016 Physician Name Gallegos,Mauro Attending Physician Bean Gaspar MD Current Medications Medications (Trade) Dose Ordered Sig/Jo Ann Route PRN Reason Start Time Stop Time Status Last Admin Dose Admin Acetaminophen (Tylenol) 650 mg Q4H PRN ORAL fever 10/29/16 14:30 11/28/16 14:29 Cholestyramine Resin (Questran) 4 gm THREE TIMES A DAY ORAL 10/30/16 09:00 11/29/16 08:59 10/30/16 15:52 Cyanocobalamin (Vitamin B12) 1,000 mcg DAILY IM 10/30/16 13:00 11/01/16 09:01 10/30/16 15:27 Dextrose (Dextrose 50%) STAT PRN IV Hypoglycemia 10/29/16 14:30 11/28/16 14:29 Dextrose/Sodium Chloride (D5 0.45% NS) 1,000 ml @ 75 mls/hr [id number] IV 10/29/16 16:00 11/28/16 15:59 10/29/16 16:04 Diphenhydramine HCl (Benadryl) 50 mg Q4H PRN IVP Itching 10/29/16 18:15 11/28/16 18:14 10/30/16 15:25 Diphenoxylate HCl/ Atropine (Lomotil) 2.5 mg Q4H PRN ORAL Diarrhea 10/29/16 23:45 11/28/16 23:44 Ergocalciferol (Drisdol) 50,000 intlu QWEEK ORAL 10/30/16 13:00 11/29/16 12:59 10/30/16 15:33 Folic Acid (Folate) 2 mg DAILY ORAL 10/30/16 13:00 11/29/16 12:59 10/30/16 15:27 Heparin Sodium (Porcine) (Heparin 5000 units/ml) 5,000 units EVERY 12 HOURS SUBQ 10/29/16 21:00 11/28/16 20:59 10/30/16 09:50 Hydromorphone HCl (Dilaudid) 1 mg Q4H PRN IVP Moderate Pain (Pain Scale 4-6) 10/29/16 18:00 11/05/16 17:59 Hydromorphone HCl (Dilaudid) 2 mg Q4H PRN IVP Severe Pain (Pain Scale 7-10) 10/30/16 10:30 11/06/16 10:29 10/30/16 15:30 Lorazepam (Ativan 2mg/ml 1ml) 1 mg Q4H PRN IV agitation 10/29/16 14:30 11/05/16 14:29 Metoclopramide HCl (Reglan) 10 mg Q6H PRN IVP SEVERE NAUSEA 10/29/16 14:30 11/28/16 14:29 Nitroglycerin (Ntg) 0.4 mg Q5M X 3 DOSES PRN SL Prn Chest Pain 10/29/16 14:30 11/28/16 14:29 Ondansetron HCl (Zofran) 4 mg Q6H PRN IVP Nausea & Vomiting 10/29/16 14:30 11/28/16 14:29 Oxycodone HCl 30 mg 30 mg Q4H PRN ORAL pain 5-7 10/29/16 14:30 11/05/16 14:29 Pantoprazole (Protonix) 40 mg DAILY IV 10/30/16 09:00 11/29/16 08:59 10/30/16 09:43 Polyethylene Glycol (Miralax) 17 gm HSPRN PRN ORAL Constipation 10/29/16 14:30 11/28/16 14:29 Temazepam (Restoril) 15 mg HSPRN PRN ORAL Insomnia 10/29/16 14:30 11/05/16 14:29 Allergies: Coded Allergies: MORPHINE (Unverified Allergy, Unknown, 10/17/16) PROCHLORPERAZINE (Verified Allergy, Unknown, 08/09/11) ROS Limited/Unobtainable: No Constitutional: Reports: no symptoms HEENT: Reports: no symptoms Cardiovascular: Reports: no symptoms Respiratory: Reports: no symptoms Gastrointestinal/Abdominal: Reports: abdomen distended, abdominal pain, diarrhea Genitourinary: Reports: no symptoms Neurologic/Psychiatric: Reports: no symptoms Subjective 41 YO M admitted with muscle cramps and abdominal pain. Now hypomagnesemia. Cover for Int Devyn-Dr Gaspar. Objective Last Vital Signs Date Time Temp Pulse Resp B/P Pulse Ox O2 Delivery O2 Flow Rate FiO2 10/30/16 15:43 97.7 55 22 112/69 98 Room Air Laboratory Tests Test 10/30/16 05:30 10/30/16 10:15 White Blood Count 6.2 K/UL (4.8-10.8) Red Blood Count 3.07 M/UL (4.70-6.10) L Hemoglobin 11.0 G/DL (14.2-18.0) L Hematocrit 34.4 % (42.0-52.0) L Mean Corpuscular Volume 112 FL (80-99) H Mean Corpuscular Hemoglobin 35.7 PG (27.0-31.0) H Mean Corpuscular Hemoglobin Concent 31.8 G/DL (32.0-36.0) L Red Cell Distribution Width 12.1 % (11.6-14.8) Platelet Count 200 K/UL (150-450) Mean Platelet Volume 6.7 FL (6.5-10.1) Neutrophils (%) (Auto) % (45.0-75.0) Lymphocytes (%) (Auto) % (20.0-45.0) Monocytes (%) (Auto) % (1.0-10.0) Eosinophils (%) (Auto) % (0.0-3.0) Basophils (%) (Auto) % (0.0-2.0) Differential Total Cells Counted 100 Neutrophils % (Manual) 64 % (45-75) Lymphocytes % (Manual) 29 % (20-45) Monocytes % (Manual) 6 % (1-10) Eosinophils % (Manual) 1 % (0-3) Basophils % (Manual) 0 % (0-2) Band Neutrophils 0 % (0-8) Platelet Estimate Adequate Platelet Morphology Normal Macrocytosis 1+ Activated Partial Thromboplast Time 21 SEC (23-33) L Sodium Level 144 mEQ/L (135-145) Potassium Level 4.1 mEQ/L (3.4-4.9) Chloride Level 108 mEQ/L (98-107) H Carbon Dioxide Level 19 mEQ/L (20-30) L Anion Gap 17 (5-15) H Blood Urea Nitrogen 13 mg/dL (7-23) Creatinine 2.4 mg/dL (0.7-1.2) H Estimat Glomerular Filtration Rate 36.7 mL/min (>60) Glucose Level 79 mg/dL (74-106) Calcium Level 8.4 mg/dL (8.6-10.2) L Phosphorus Level 3.9 mg/dL (2.5-4.8) Magnesium Level 1.5 mg/dL (1.7-2.5) L Total Bilirubin 0.6 mg/dL (0.0-1.2) Aspartate Amino Transf (AST/SGOT) 24 U/L (5-40) Alanine Aminotransferase (ALT/SGPT) 29 U/L (3-41) Alkaline Phosphatase 81 U/L (40-129) Total Protein 6.4 g/dL (6.6-8.7) L Albumin 3.9 g/dL (3.5-5.2) Globulin 2.5 g/dL Albumin/Globulin Ratio 1.5 (1.0-2.7) Amylase Level 581 U/L (10-110) *H Lipase 29 U/L (< 60) Lactic Acid Level 1.60 mmol/L (0.66-2.22) Intake and Output 10/29/16 10/30/16 19:00 07:00 Intake Total 585 ml 1853 ml Balance 585 ml 1853 ml Intake Oral 360 ml 1000 ml IV Total 225 ml 853 ml # Voids 2 5 # Bowel Movements 1 1 Objective General: alert, cooperative, no distress, appears stated age Head: normocephalic, without obvious abnormality, atraumatic Eyes: conjunctivae/corneas clear. PERRL, EOM's intact Throat: lips, mucosa, and tongue normal. MMM Neck: supple, symmetrical, trachea midline, and no JVD Lungs: clear to auscultation bilaterally Heart: regular rate and rhythm, S1, S2 normal, no murmur, click, rub or gallop Abdomen: soft, tender, distended, hyperactive bowel sounds; no masses or organomegaly Extremities: extremities normal, atraumatic, no cyanosis or edema Pulses: 2+ and symmetric Skin: skin color, texture, turgor normal; no rashes or lesions Neurologic: grossly normal, no focal deficits Assessment/Plan Problem List: (1) Muscle cramps Assessment & Plan: Due to hypomagnesemia. Replace Mg (2) Hypomagnesemia (3) Abdominal pain Assessment & Plan: Cont clear liq diet. (4) HTN (hypertension) (5) Short bowel syndrome (6) Diarrhea Assessment & Plan: Due to short gut syndrome. See GI note. (7) Renal failure Assessment & Plan: See nephrology note. (8) Hypomagnesemia Status: not improved MAURO GALLEGOS October 30, 2016 17:47
[2016-10-30 20:00] VITALS: BP 124/78
[2016-10-31] VITALS: BP 118/78
[2016-10-31] MEDS: DiphenhydrAMINE 50mg/ml Inj IVP PRN ×5 (00:31→16:44)
[2016-10-31 04:00] VITALS: BP 119/76
[2016-10-31 07:19] LABS: MEAN CORPUSCULAR HEMOGLOBIN 35.2 PG (27.0-31.0); MEAN CORPUSCULAR HGB CONC 31.1 G/DL (32.0-36.0); MEAN CORPUSCULAR VOLUME 113 FL (80-99); MEAN PLATELET VOLUME 6.5 FL (6.5-10.1); PLATELET COUNT 197 K/UL (150-450); RED BLOOD COUNT 3.06 M/UL (4.70-6.10); WHITE BLOOD COUNT 6.7 K/UL (4.8-10.8)
[2016-10-31 07:38] LABS: CALCIUM 8.6 mg/dL (8.6-10.2); CREATININE 2.6 mg/dL (0.7-1.2); GLOMERULAR FILTRATION RATE 33.5 mL/min (>60); MAGNESIUM 1.9 mg/dL (1.7-2.5); POTASSIUM 4.8 mEQ/L (3.4-4.9)
[2016-10-31 07:52] VITALS: BP 125/75
[2016-10-31] MEDS: D5 1/2NS 1,000 ML IV SCH (08:46)
[2016-10-31] MEDS: Pantoprazole Inj IV SCH (08:48)
[2016-10-31] MEDS: Vitamin B12 1000mcg/ml Inj IM SCH (08:48)
[2016-10-31] MEDS: Cholestyramine 4gm Pkt ORAL SCH ×2 (08:48→12:55)
[2016-10-31] MEDS: Heparin 5000 units/ml inj SUBQ SCH (08:49)
--- NOTE | 2016-10-31 11:07 | GI Progress Note ---
Assessment/Plan Problems: (1) Hypomagnesemia ICD Codes: E83.42 - Hypomagnesemia SNOMED: 954180212 (2) Short bowel syndrome ICD Codes: K91.2 - Short bowel syndrome SNOMED: 66128764 (3) Abdominal pain ICD Codes: R10.9 - Abdominal pain SNOMED: 09297514 (4) Abdominal pain ICD Codes: R10.9 - Unspecified abdominal pain SNOMED: 96899115 (5) GERD (gastroesophageal reflux disease) ICD Codes: K21.9 - Gastro-esophageal reflux disease without esophagitis SNOMED: 354233084 (6) Anemia ICD Codes: D64.9 - Anemia, unspecified SNOMED: 677609906 (7) Opiate dependence ICD Codes: F11.20 - Opioid dependence, uncomplicated SNOMED: 78106400 (8) Diarrhea ICD Codes: R19.7 - Diarrhea, unspecified SNOMED: 81148098 Qualifiers: Qualified Codes: K90.9 - Intestinal malabsorption, unspecified; R19.7 - Diarrhea, unspecified Status: stable, unchanged Status Narrative Discussed with Dr. Alegre. Assessment/Plan Assessment - chronic diarrhea - short gut syndrome - recurrent pain - electrolyte abnormalities - N/V - H/A - Cdiff negative - elevated amylase, but normal lipase >> lactic acid level unremarkable r/o ischemia Recommendations cholestyramine for diarrhea associated with short gut syndrome lifelong B12 supplementation low residual/low fat diet >> avoid high carbohydrate diet which may induce osmotic diarrhea H2B monitor H&H, transfuse prn lomotil prn electrolyte replacement monitor amylase fu labs Subjective Subjective abdominal pain denies diarrhea Objective Last 24 Hour Vital Signs Date Time Temp Pulse Resp B/P Pulse Ox O2 Delivery O2 Flow Rate FiO2 10/31/16 09:17 97.7 10/31/16 07:52 97.7 69 14 125/75 98 Room Air 10/31/16 04:00 97.7 72 18 119/76 100 Room Air 10/31/16 00:00 98.2 79 18 118/78 100 Room Air 10/30/16 20:00 97.7 82 18 124/78 97 Room Air 10/30/16 15:43 97.7 55 22 112/69 98 Room Air 10/30/16 11:53 97.9 77 21 113/70 99 Intake and Output 10/30/16 10/31/16 19:00 07:00 Intake Total 380 ml 675 ml Balance 380 ml 675 ml Intake Oral 380 ml IV Total 675 ml # Voids 2 # Bowel Movements 7 2 Laboratory Tests Test 10/31/16 06:50 White Blood Count 6.7 K/UL (4.8-10.8) Red Blood Count 3.06 M/UL (4.70-6.10) L Hemoglobin 10.8 G/DL (14.2-18.0) L Hematocrit 34.5 % (42.0-52.0) L Mean Corpuscular Volume 113 FL (80-99) H Mean Corpuscular Hemoglobin 35.2 PG (27.0-31.0) H Mean Corpuscular Hemoglobin Concent 31.1 G/DL (32.0-36.0) L Red Cell Distribution Width 12.0 % (11.6-14.8) Platelet Count 197 K/UL (150-450) Mean Platelet Volume 6.5 FL (6.5-10.1) Neutrophils (%) (Auto) % (45.0-75.0) Lymphocytes (%) (Auto) % (20.0-45.0) Monocytes (%) (Auto) % (1.0-10.0) Eosinophils (%) (Auto) % (0.0-3.0) Basophils (%) (Auto) % (0.0-2.0) Neutrophils % (Manual) Pending Lymphocytes % (Manual) Pending Platelet Estimate Pending Platelet Morphology Pending Sodium Level 144 mEQ/L (135-145) Potassium Level 4.8 mEQ/L (3.4-4.9) Chloride Level 111 mEQ/L (98-107) H Carbon Dioxide Level 18 mEQ/L (20-30) L Anion Gap 15 (5-15) Blood Urea Nitrogen 11 mg/dL (7-23) Creatinine 2.6 mg/dL (0.7-1.2) H Estimat Glomerular Filtration Rate 33.5 mL/min (>60) Glucose Level 91 mg/dL (74-106) Calcium Level 8.6 mg/dL (8.6-10.2) Magnesium Level 1.9 mg/dL (1.7-2.5) Amylase Level 599 U/L (10-110) *H Height (Feet): 5 Height (Inches): 8.00 Weight (Pounds): 160 General Appearance: no apparent distress, alert Cardiovascular: normal rate Respiratory/Chest: normal breath sounds, no respiratory distress Abdominal Exam: normal bowel sounds, non tender, soft Isamar Treviño N.P. October 31, 2016 11:07
[2016-10-31 11:55] VITALS: BP 133/96
[2016-10-31 12:24] LABS: BAND NEUTROPHILS % (MANUAL) 0 % (0-8); BASOPHILS % (MANUAL) 0 % (0-2); EOSINOPHILS % (MANUAL) 0 % (0-3); LYMPHOCYTES % (MANUAL) 23 % (20-45); NEUTROPHILS % (MANUAL) 71 % (45-75); PLATELET ESTIMATE ADEQUATE; PLATELET MORPHOLOGY NORMAL; TOTAL CELLS COUNTED 100
[2016-10-31 12:25] LABS: HYPOCHROMASIA 1+; MACROCYTES 1+
--- NOTE | 2016-10-31 14:57 | General Progress Note ---
Assessment/Plan Status: stable - from renal stand Status Narrative Cr 2.6 Assessment/Plan Hypo Magnesium - corrected ? Acute but mainly Chronic renal failure Short bowel syndrome abdominal pain Low B12 Plan: MIRIAM renal : unremarkable in previous admission B12 and Folate supplement IV hydrate, and Mag Monitor lytes and Chemistries PO Vit D GI eval Subjective ROS Limited/Unobtainable: No Constitutional: Reports: malaise Gastrointestinal/Abdominal: Reports: abdominal pain Allergies: Coded Allergies: MORPHINE (Unverified Allergy, Unknown, 10/17/16) PROCHLORPERAZINE (Verified Allergy, Unknown, 08/09/11) Objective Last 24 Hour Vital Signs Date Time Temp Pulse Resp B/P Pulse Ox O2 Delivery O2 Flow Rate FiO2 10/31/16 13:25 97.9 10/31/16 11:55 97.9 88 15 133/96 97 Room Air 10/31/16 07:52 97.7 69 14 125/75 98 Room Air 10/31/16 04:00 97.7 72 18 119/76 100 Room Air 10/31/16 00:00 98.2 79 18 118/78 100 Room Air 10/30/16 20:00 97.7 82 18 124/78 97 Room Air 10/30/16 15:43 97.7 55 22 112/69 98 Room Air Intake and Output 10/30/16 10/31/16 19:00 07:00 Intake Total 380 ml 675 ml Balance 380 ml 675 ml Intake Oral 380 ml IV Total 675 ml # Voids 2 # Bowel Movements 7 2 Laboratory Tests 10/31/16 06:50: White Blood Count 6.7, Red Blood Count 3.06L, Hemoglobin 10.8L, Hematocrit 34.5L , Mean Corpuscular Volume 113H, Mean Corpuscular Hemoglobin 35.2H, Mean Corpuscular Hemoglobin Concent 31.1L, Red Cell Distribution Width 12.0, Platelet Count 197, Mean Platelet Volume 6.5, Neutrophils (%) (Auto) , Lymphocytes (%) (Auto) , Monocytes (%) (Auto) , Eosinophils (%) (Auto) , Basophils (%) (Auto) , Differential Total Cells Counted 100, Neutrophils % ( Manual) 71, Lymphocytes % (Manual) 23, Monocytes % (Manual) 6, Eosinophils % ( Manual) 0, Basophils % (Manual) 0, Band Neutrophils 0, Platelet Estimate Adequate, Platelet Morphology Normal, Hypochromasia 1+, Macrocytosis 1+, Sodium Level 144, Potassium Level 4.8, Chloride Level 111H, Carbon Dioxide Level 18L, Anion Gap 15, Blood Urea Nitrogen 11, Creatinine 2.6H, Estimat Glomerular Filtration Rate 33.5, Glucose Level 91, Calcium Level 8.6, Magnesium Level 1.9, Amylase Level 599*H Height (Feet): 5 Height (Inches): 8.00 Weight (Pounds): 160 General Appearance: no apparent distress Objective no change DOMINIC STODDARD October 31, 2016 14:57
--- NOTE | 2016-10-31 15:33 | Pulmonology Progress Note ---
Assessment/Plan Problems: (1) Acute pancreatitis (2) Opiate dependence (3) HTN (hypertension) (4) Hypomagnesemia (5) Short bowel syndrome (6) Chronic pain syndrome (7) Diarrhea Assessment/Plan symptomatic treatment Mg supplement monitor BP pain management Subjective ROS Limited/Unobtainable: No Interval Events: late note for 10/30; still c/o of abdominal pain, mg better Allergies: Coded Allergies: MORPHINE (Unverified Allergy, Unknown, 10/17/16) PROCHLORPERAZINE (Verified Allergy, Unknown, 08/09/11) Objective Last 24 Hour Vital Signs Date Time Temp Pulse Resp B/P Pulse Ox O2 Delivery O2 Flow Rate FiO2 10/31/16 13:25 97.9 10/31/16 11:55 97.9 88 15 133/96 97 Room Air 10/31/16 07:52 97.7 69 14 125/75 98 Room Air 10/31/16 04:00 97.7 72 18 119/76 100 Room Air 10/31/16 00:00 98.2 79 18 118/78 100 Room Air 10/30/16 20:00 97.7 82 18 124/78 97 Room Air 10/30/16 15:43 97.7 55 22 112/69 98 Room Air Intake and Output 10/30/16 10/31/16 19:00 07:00 Intake Total 380 ml 750 ml Balance 380 ml 750 ml Intake Oral 380 ml IV Total 750 ml # Voids 2 # Bowel Movements 7 2 Objective General Appearance: WD/WN HEENT: normocephalic, atraumatic Respiratory/Chest: chest wall non-tender, lungs clear Cardiovascular: normal peripheral pulses, normal rate Abdomen: normal bowel sounds, soft, non tender Extremities: no cyanosis 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 Lymphatic: no neck adenopathy Laboratory Tests 10/31/16 06:50: White Blood Count 6.7, Red Blood Count 3.06L, Hemoglobin 10.8L, Hematocrit 34.5L , Mean Corpuscular Volume 113H, Mean Corpuscular Hemoglobin 35.2H, Mean Corpuscular Hemoglobin Concent 31.1L, Red Cell Distribution Width 12.0, Platelet Count 197, Mean Platelet Volume 6.5, Neutrophils (%) (Auto) , Lymphocytes (%) (Auto) , Monocytes (%) (Auto) , Eosinophils (%) (Auto) , Basophils (%) (Auto) , Differential Total Cells Counted 100, Neutrophils % ( Manual) 71, Lymphocytes % (Manual) 23, Monocytes % (Manual) 6, Eosinophils % ( Manual) 0, Basophils % (Manual) 0, Band Neutrophils 0, Platelet Estimate Adequate, Platelet Morphology Normal, Hypochromasia 1+, Macrocytosis 1+, Sodium Level 144, Potassium Level 4.8, Chloride Level 111H, Carbon Dioxide Level 18L, Anion Gap 15, Blood Urea Nitrogen 11, Creatinine 2.6H, Estimat Glomerular Filtration Rate 33.5, Glucose Level 91, Calcium Level 8.6, Magnesium Level 1.9, Amylase Level 599*H Current Medications Medications (Trade) Dose Ordered Sig/Jo Ann Route PRN Reason Start Time Stop Time Status Last Admin Dose Admin Acetaminophen (Tylenol) 650 mg Q4H PRN ORAL fever 10/29/16 14:30 11/28/16 14:29 Cholestyramine Resin (Questran) 4 gm THREE TIMES A DAY ORAL 10/30/16 09:00 11/29/16 08:59 10/31/16 12:55 Cyanocobalamin (Vitamin B12) 1,000 mcg DAILY IM 10/30/16 13:00 11/01/16 09:01 10/31/16 08:48 Dextrose (Dextrose 50%) STAT PRN IV Hypoglycemia 10/29/16 14:30 11/28/16 14:29 Dextrose/Sodium Chloride (D5 0.45% NS) 1,000 ml @ 75 mls/hr [id number] IV 10/29/16 16:00 11/28/16 15:59 10/31/16 08:46 Diphenhydramine HCl (Benadryl) 50 mg Q4H PRN IVP Itching 10/29/16 18:15 11/28/16 18:14 10/31/16 12:55 Diphenoxylate HCl/ Atropine (Lomotil) 2.5 mg Q4H PRN ORAL Diarrhea 10/29/16 23:45 11/28/16 23:44 Ergocalciferol (Drisdol) 50,000 intlu QWEEK ORAL 10/30/16 13:00 11/29/16 12:59 10/30/16 15:33 Folic Acid 2 mg 2 mg DAILY ORAL 10/30/16 13:00 11/29/16 12:59 10/31/16 08:47 Heparin Sodium (Porcine) (Heparin 5000 units/ml) 5,000 units EVERY 12 HOURS SUBQ 10/29/16 21:00 11/28/16 20:59 10/30/16 20:23 Hydromorphone HCl (Dilaudid) 1 mg Q4H PRN IVP Moderate Pain (Pain Scale 4-6) 10/29/16 18:00 11/05/16 17:59 Hydromorphone HCl (Dilaudid) 2 mg Q4H PRN IVP Severe Pain (Pain Scale 7-10) 10/30/16 10:30 11/06/16 10:29 10/31/16 12:55 Lorazepam (Ativan 2mg/ml 1ml) 1 mg Q4H PRN IV agitation 10/29/16 14:30 11/05/16 14:29 Magnesium Sulfate (Magnesium Sulfate 1gm/100ml) 100 ml @ 100 mls/hr Q1H IVPB 10/31/16 16:00 10/31/16 19:59 Metoclopramide HCl (Reglan) 10 mg Q6H PRN IVP SEVERE NAUSEA 10/29/16 14:30 11/28/16 14:29 Nitroglycerin (Ntg) 0.4 mg Q5M X 3 DOSES PRN SL Prn Chest Pain 10/29/16 14:30 11/28/16 14:29 Ondansetron HCl (Zofran) 4 mg Q6H PRN IVP Nausea & Vomiting 10/29/16 14:30 11/28/16 14:29 Oxycodone HCl 30 mg 30 mg Q4H PRN ORAL pain 5-7 10/29/16 14:30 11/05/16 14:29 Pantoprazole (Protonix) 40 mg DAILY IV 10/30/16 09:00 11/29/16 08:59 10/31/16 08:48 Polyethylene Glycol (Miralax) 17 gm HSPRN PRN ORAL Constipation 10/29/16 14:30 11/28/16 14:29 Temazepam (Restoril) 15 mg HSPRN PRN ORAL Insomnia 10/29/16 14:30 11/05/16 14:29 RUBY DUNLAP October 31, 2016 15:33
--- NOTE | 2016-10-31 15:37 | Pulmonology Progress Note ---
Assessment/Plan Problems: (1) Acute pancreatitis (2) Opiate dependence (3) HTN (hypertension) (4) Hypomagnesemia (5) Short bowel syndrome (6) Chronic pain syndrome (7) Diarrhea Assessment/Plan symptomatic treatment Mg supplement monitor BP pain management cholestyramine for diarrhea associated with short gut syndrome lifelong B12 supplementation low residual/low fat diet Avoid high carbohydrate diet lomotil prn electrolyte replacement Subjective Interval Events: still abdominal pain Allergies: Coded Allergies: MORPHINE (Unverified Allergy, Unknown, 10/17/16) PROCHLORPERAZINE (Verified Allergy, Unknown, 08/09/11) Objective Last 24 Hour Vital Signs Date Time Temp Pulse Resp B/P Pulse Ox O2 Delivery O2 Flow Rate FiO2 10/31/16 13:25 97.9 10/31/16 11:55 97.9 88 15 133/96 97 Room Air 10/31/16 07:52 97.7 69 14 125/75 98 Room Air 10/31/16 04:00 97.7 72 18 119/76 100 Room Air 10/31/16 00:00 98.2 79 18 118/78 100 Room Air 10/30/16 20:00 97.7 82 18 124/78 97 Room Air 10/30/16 15:43 97.7 55 22 112/69 98 Room Air Intake and Output 10/30/16 10/31/16 19:00 07:00 Intake Total 380 ml 750 ml Balance 380 ml 750 ml Intake Oral 380 ml IV Total 750 ml # Voids 2 # Bowel Movements 7 2 Objective General Appearance: WD/WN HEENT: normocephalic, atraumatic Respiratory/Chest: chest wall non-tender, lungs clear Cardiovascular: normal peripheral pulses, normal rate Abdomen: normal bowel sounds, soft, non tender Extremities: no cyanosis 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 Lymphatic: no neck adenopathy Laboratory Tests 10/31/16 06:50: White Blood Count 6.7, Red Blood Count 3.06L, Hemoglobin 10.8L, Hematocrit 34.5L , Mean Corpuscular Volume 113H, Mean Corpuscular Hemoglobin 35.2H, Mean Corpuscular Hemoglobin Concent 31.1L, Red Cell Distribution Width 12.0, Platelet Count 197, Mean Platelet Volume 6.5, Neutrophils (%) (Auto) , Lymphocytes (%) (Auto) , Monocytes (%) (Auto) , Eosinophils (%) (Auto) , Basophils (%) (Auto) , Differential Total Cells Counted 100, Neutrophils % ( Manual) 71, Lymphocytes % (Manual) 23, Monocytes % (Manual) 6, Eosinophils % ( Manual) 0, Basophils % (Manual) 0, Band Neutrophils 0, Platelet Estimate Adequate, Platelet Morphology Normal, Hypochromasia 1+, Macrocytosis 1+, Sodium Level 144, Potassium Level 4.8, Chloride Level 111H, Carbon Dioxide Level 18L, Anion Gap 15, Blood Urea Nitrogen 11, Creatinine 2.6H, Estimat Glomerular Filtration Rate 33.5, Glucose Level 91, Calcium Level 8.6, Magnesium Level 1.9, Amylase Level 599*H Current Medications Medications (Trade) Dose Ordered Sig/Jo Ann Route PRN Reason Start Time Stop Time Status Last Admin Dose Admin Acetaminophen (Tylenol) 650 mg Q4H PRN ORAL fever 10/29/16 14:30 11/28/16 14:29 Cholestyramine Resin (Questran) 4 gm THREE TIMES A DAY ORAL 10/30/16 09:00 11/29/16 08:59 10/31/16 12:55 Cyanocobalamin (Vitamin B12) 1,000 mcg DAILY IM 10/30/16 13:00 11/01/16 09:01 10/31/16 08:48 Dextrose (Dextrose 50%) STAT PRN IV Hypoglycemia 10/29/16 14:30 11/28/16 14:29 Dextrose/Sodium Chloride (D5 0.45% NS) 1,000 ml @ 75 mls/hr [id number] IV 10/29/16 16:00 11/28/16 15:59 10/31/16 08:46 Diphenhydramine HCl (Benadryl) 50 mg Q4H PRN IVP Itching 10/29/16 18:15 11/28/16 18:14 10/31/16 12:55 Diphenoxylate HCl/ Atropine (Lomotil) 2.5 mg Q4H PRN ORAL Diarrhea 10/29/16 23:45 11/28/16 23:44 Ergocalciferol (Drisdol) 50,000 intlu QWEEK ORAL 10/30/16 13:00 11/29/16 12:59 10/30/16 15:33 Folic Acid 2 mg 2 mg DAILY ORAL 10/30/16 13:00 11/29/16 12:59 10/31/16 08:47 Heparin Sodium (Porcine) (Heparin 5000 units/ml) 5,000 units EVERY 12 HOURS SUBQ 10/29/16 21:00 11/28/16 20:59 10/30/16 20:23 Hydromorphone HCl (Dilaudid) 1 mg Q4H PRN IVP Moderate Pain (Pain Scale 4-6) 10/29/16 18:00 11/05/16 17:59 Hydromorphone HCl (Dilaudid) 2 mg Q4H PRN IVP Severe Pain (Pain Scale 7-10) 10/30/16 10:30 11/06/16 10:29 10/31/16 12:55 Lorazepam (Ativan 2mg/ml 1ml) 1 mg Q4H PRN IV agitation 10/29/16 14:30 11/05/16 14:29 Magnesium Sulfate (Magnesium Sulfate 1gm/100ml) 100 ml @ 100 mls/hr Q1H IVPB 10/31/16 16:00 10/31/16 19:59 Metoclopramide HCl (Reglan) 10 mg Q6H PRN IVP SEVERE NAUSEA 10/29/16 14:30 11/28/16 14:29 Nitroglycerin (Ntg) 0.4 mg Q5M X 3 DOSES PRN SL Prn Chest Pain 10/29/16 14:30 11/28/16 14:29 Ondansetron HCl (Zofran) 4 mg Q6H PRN IVP Nausea & Vomiting 10/29/16 14:30 11/28/16 14:29 Oxycodone HCl 30 mg 30 mg Q4H PRN ORAL pain 5-7 10/29/16 14:30 11/05/16 14:29 Pantoprazole (Protonix) 40 mg DAILY IV 10/30/16 09:00 11/29/16 08:59 10/31/16 08:48 Polyethylene Glycol (Miralax) 17 gm HSPRN PRN ORAL Constipation 10/29/16 14:30 11/28/16 14:29 Temazepam (Restoril) 15 mg HSPRN PRN ORAL Insomnia 10/29/16 14:30 11/05/16 14:29 RUBY DUNLAP October 31, 2016 15:36
[2016-10-31 15:52] VITALS: BP 135/79
--- NOTE | 2016-10-31 17:12 | Internal Med Progress Note ---
Subjective Date of Service: October 31, 2016 Physician Name Gallegos,Mauro Attending Physician Bean Gaspar MD Current Medications Medications (Trade) Dose Ordered Sig/Jo Ann Route PRN Reason Start Time Stop Time Status Last Admin Dose Admin Acetaminophen (Tylenol) 650 mg Q4H PRN ORAL fever 10/29/16 14:30 11/28/16 14:29 Cholestyramine Resin (Questran) 4 gm THREE TIMES A DAY ORAL 10/30/16 09:00 11/29/16 08:59 10/31/16 12:55 Cyanocobalamin (Vitamin B12) 1,000 mcg DAILY IM 10/30/16 13:00 11/01/16 09:01 10/31/16 08:48 Dextrose (Dextrose 50%) STAT PRN IV Hypoglycemia 10/29/16 14:30 11/28/16 14:29 Dextrose/Sodium Chloride (D5 0.45% NS) 1,000 ml @ 75 mls/hr [id number] IV 10/29/16 16:00 11/28/16 15:59 10/31/16 08:46 Diphenhydramine HCl (Benadryl) 50 mg Q4H PRN IVP Itching 10/29/16 18:15 11/28/16 18:14 10/31/16 16:44 Diphenoxylate HCl/ Atropine (Lomotil) 2.5 mg Q4H PRN ORAL Diarrhea 10/29/16 23:45 11/28/16 23:44 Ergocalciferol (Drisdol) 50,000 intlu QWEEK ORAL 10/30/16 13:00 11/29/16 12:59 10/30/16 15:33 Folic Acid 2 mg 2 mg DAILY ORAL 10/30/16 13:00 11/29/16 12:59 10/31/16 08:47 Heparin Sodium (Porcine) (Heparin 5000 units/ml) 5,000 units EVERY 12 HOURS SUBQ 10/29/16 21:00 11/28/16 20:59 10/30/16 20:23 Hydromorphone HCl (Dilaudid) 1 mg Q4H PRN IVP Moderate Pain (Pain Scale 4-6) 10/29/16 18:00 11/05/16 17:59 Hydromorphone HCl (Dilaudid) 2 mg Q4H PRN IVP Severe Pain (Pain Scale 7-10) 10/30/16 10:30 11/06/16 10:29 10/31/16 16:45 Lorazepam (Ativan 2mg/ml 1ml) 1 mg Q4H PRN IV agitation 10/29/16 14:30 11/05/16 14:29 Magnesium Sulfate (Magnesium Sulfate 1gm/100ml) 100 ml @ 100 mls/hr Q1H IVPB 10/31/16 16:00 10/31/16 19:59 Metoclopramide HCl (Reglan) 10 mg Q6H PRN IVP SEVERE NAUSEA 10/29/16 14:30 11/28/16 14:29 Nitroglycerin (Ntg) 0.4 mg Q5M X 3 DOSES PRN SL Prn Chest Pain 10/29/16 14:30 11/28/16 14:29 Ondansetron HCl (Zofran) 4 mg Q6H PRN IVP Nausea & Vomiting 10/29/16 14:30 11/28/16 14:29 Oxycodone HCl 30 mg 30 mg Q4H PRN ORAL pain 5-10/29/16 14:30 11/05/16 14:29 Pantoprazole (Protonix) 40 mg DAILY IV 10/30/16 09:00 11/29/16 08:59 10/31/16 08:48 Polyethylene Glycol (Miralax) 17 gm HSPRN PRN ORAL Constipation 10/29/16 14:30 11/28/16 14:29 Temazepam (Restoril) 15 mg HSPRN PRN ORAL Insomnia 10/29/16 14:30 11/05/16 14:29 Allergies: Coded Allergies: MORPHINE (Unverified Allergy, Unknown, 10/17/16) PROCHLORPERAZINE (Verified Allergy, Unknown, 08/09/11) ROS Limited/Unobtainable: No Constitutional: Reports: no symptoms HEENT: Reports: no symptoms Cardiovascular: Reports: no symptoms Respiratory: Reports: no symptoms Gastrointestinal/Abdominal: Reports: abdominal pain Genitourinary: Reports: no symptoms Neurologic/Psychiatric: Reports: no symptoms Subjective 41 YO M admitted with muscle cramps and abdominal pain. Now hypomagnesemia. Cover for Int Med-Dr Gaspar. Await discharge home today Objective Last Vital Signs Date Time Temp Pulse Resp B/P Pulse Ox O2 Delivery O2 Flow Rate FiO2 10/31/16 15:52 97.7 78 14 135/79 98 Room Air Laboratory Tests Test 10/31/16 06:50 White Blood Count 6.7 K/UL (4.8-10.8) Red Blood Count 3.06 M/UL (4.70-6.10) L Hemoglobin 10.8 G/DL (14.2-18.0) L Hematocrit 34.5 % (42.0-52.0) L Mean Corpuscular Volume 113 FL (80-99) H Mean Corpuscular Hemoglobin 35.2 PG (27.0-31.0) H Mean Corpuscular Hemoglobin Concent 31.1 G/DL (32.0-36.0) L Red Cell Distribution Width 12.0 % (11.6-14.8) Platelet Count 197 K/UL (150-450) Mean Platelet Volume 6.5 FL (6.5-10.1) Neutrophils (%) (Auto) % (45.0-75.0) Lymphocytes (%) (Auto) % (20.0-45.0) Monocytes (%) (Auto) % (1.0-10.0) Eosinophils (%) (Auto) % (0.0-3.0) Basophils (%) (Auto) % (0.0-2.0) Differential Total Cells Counted 100 Neutrophils % (Manual) 71 % (45-75) Lymphocytes % (Manual) 23 % (20-45) Monocytes % (Manual) 6 % (1-10) Eosinophils % (Manual) 0 % (0-3) Basophils % (Manual) 0 % (0-2) Band Neutrophils 0 % (0-8) Platelet Estimate Adequate Platelet Morphology Normal Hypochromasia 1+ Macrocytosis 1+ Sodium Level 144 mEQ/L (135-145) Potassium Level 4.8 mEQ/L (3.4-4.9) Chloride Level 111 mEQ/L (98-107) H Carbon Dioxide Level 18 mEQ/L (20-30) L Anion Gap 15 (5-15) Blood Urea Nitrogen 11 mg/dL (7-23) Creatinine 2.6 mg/dL (0.7-1.2) H Estimat Glomerular Filtration Rate 33.5 mL/min (>60) Glucose Level 91 mg/dL (74-106) Calcium Level 8.6 mg/dL (8.6-10.2) Magnesium Level 1.9 mg/dL (1.7-2.5) Amylase Level 599 U/L (10-110) *H Intake and Output 10/30/16 10/31/16 19:00 07:00 Intake Total 380 ml 750 ml Balance 380 ml 750 ml Intake Oral 380 ml IV Total 750 ml # Voids 2 # Bowel Movements 7 2 Objective General: alert, cooperative, no distress, appears stated age Head: normocephalic, without obvious abnormality, atraumatic Eyes: conjunctivae/corneas clear. PERRL, EOM's intact Throat: lips, mucosa, and tongue normal. MMM Neck: supple, symmetrical, trachea midline, and no JVD Lungs: clear to auscultation bilaterally Heart: regular rate and rhythm, S1, S2 normal, no murmur, click, rub or gallop Abdomen: soft, tender, distended, hyperactive bowel sounds; no masses or organomegaly Extremities: extremities normal, atraumatic, no cyanosis or edema Pulses: 2+ and symmetric Skin: skin color, texture, turgor normal; no rashes or lesions Neurologic: grossly normal, no focal deficits Assessment/Plan Problem List: (1) Muscle cramps Assessment & Plan: Due to hypomagnesemia. Replace Mg (2) Hypomagnesemia (3) Abdominal pain Assessment & Plan: Cont low residue diet. (4) HTN (hypertension) (5) Short bowel syndrome (6) Diarrhea Assessment & Plan: Due to short gut syndrome. See GI note. (7) Renal failure Assessment & Plan: See nephrology note. (8) Hypomagnesemia Status: stable Assessment/Plan D/C home today. Follow up Dr Gaspar 1 week MAURO GALLEGOS October 31, 2016 17:12
[2016-10-31] MEDS ORDERED: D5 1/2NS 1000ml IV ONE (17:55)
[2016-10-31] MEDS ORDERED: Tubing IV Secondary IV ONE (17:55)
--- NOTE | 2016-11-01 13:04 | Discharge Summary ---
Discharge Summary Hospital Course Date of Admission October 29, 2016 at 13:28 Date of Discharge October 31, 2016 at 17:56 Admitting Diagnosis hypomagnesemia HPI Victoriano Ramirez Jorge is a 41 year old male who was admitted on October 29, 2016 at 13: 28 for Hypomagnesemia Hospital Course [id number] Discharge Discharge Disposition Patient was discharged to Home (01) Discharge Diagnoses: Fe Millard NP November 01, 2016 13:04
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
== END 2016-10-31 17:56 | disposition home or self-care (01) | DRG 641 ==
LOC: EMR 12:41 → 4E 13:28 → EDBEDREQ 13:44
DX: E83.42 Hypomagnesemia (principal); N17.9 Acute kidney failure, unspecified; E87.2 Acidosis; K91.2 Postsurgical malabsorption, not elsewhere classified; F11.20 Opioid dependence, uncomplicated; I12.9 Hypertensive chronic kidney disease with stage 1 through stage 4 chronic kidney disease, or unspecified chronic kidney disease; K21.9 Gastro-esophageal reflux disease without esophagitis; D64.9 Anemia, unspecified; N18.9 Chronic kidney disease, unspecified; R19.7 Diarrhea, unspecified; G89.4 Chronic pain syndrome
CPT/HCPCS: 36415; 74000; 76700; 80048; 80053; 80300; 81003; 82150; 82248; 82550; 83605; 83690; 83735; 84100; 85007; 85025; 85610; 85730; J2405

== ENCOUNTER 2016-11-03 00:04 | Emergency (ER) | payer MEDICARE, OTHER ==
[~2016-11-03] VITALS: Ht 165.1 cm; Wt 77.1 kg
--- NOTE | 2016-11-03 01:15 | Emergency Room Report ---
History of Present Illness General Chief Complaint: Abdominal Pain Source: Patient Present Illness HPI Is a 41-year-old male with chronic abdominal pain. He's been here multiple time for the same thing. He denies any fever or chills. Complaining of abdominal cramps and spasm. Pain is 10 out of 10. No nausea no vomiting. Normal he has low magnesium. Requesting Dilaudid. No fever or chills. No diarrhea. Allergies: Coded Allergies: MORPHINE (Unverified Allergy, Unknown, 10/17/16) PROCHLORPERAZINE (Verified Allergy, Unknown, 08/09/11) Patient History Past Medical History: see triage record, old chart reviewed Past Surgical History: other Pertinent Family History: none Social History: Denies: drug use Immunizations: other Reviewed Nursing Documentation: PMH: Agreed, PSxH: Agreed Nursing Documentation-PMH Past Medical History: No Stated History Hx Cardiac Problems: No Hx Hypertension: No Hx Pacemaker: No Hx Asthma: No Hx COPD: No Hx Diabetes: No Hx Cancer: No Hx Gastrointestinal Problems: Yes - [facility] 2012 Hx Dialysis: No Hx Neurological Problems: No Hx Cerebrovascular Accident: No Hx Seizures: No Hx Weakness: Yes Hx Fatigue: Yes Review of Systems Eye: Denies: blurred vision, eye pain ENT: Denies: ear pain, nose congestion, throat swelling Respiratory: Denies: cough, shortness of breath Cardiovascular: Denies: chest pain, palpitations Gastrointestinal: Reports: abdominal pain, Denies: diarrhea, nausea, vomiting Musculoskeletal: Denies: back pain, joint pain Skin: Denies: rash Neurological: Denies: headache, numbness Endocrine: Denies: increased thirst, increased urine Hematologic/Lymphatic: Denies: easy bruising All Other Systems: negative except mentioned in HPI Physical Exam Vital Signs Date Time Temp Pulse Resp B/P Pulse Ox O2 Delivery O2 Flow Rate FiO2 11/03/16 00:21 98.2 87 18 138/89 97 Room Air vitals normal Sp02 EP Interpretation: reviewed, normal General Appearance: well appearing, no apparent distress, alert Head: normocephalic, atraumatic Eyes: bilateral eye EOMI, bilateral eye PERRL ENT: hearing grossly normal, normal pharynx Neck: full range of motion, supple, no meningismus Respiratory: chest non-tender, lungs clear, normal breath sounds Cardiovascular #1: regular rate, rhythm, no murmur Gastrointestinal: no mass, no organomegaly, no bruit, non-distended, abnormal bowel sounds - Hyperactive bowel sounds, tenderness - That his Musculoskeletal: back normal, gait/station normal, normal range of motion Neurologic: alert, oriented x3 Psychiatric: mood/affect normal Skin: warm/dry Medical Decision Making Diagnostic Impression: Primary Impression: Abdominal pain of unknown etiology Additional Impression: Opiate dependence Qualified Codes: F11.20 - Opioid dependence, uncomplicated ER Course Patient with exacerbation of chronic abdominal pain. No vomiting here. He looks well. He has an appointment with Dr. Gaspar tomorrow. We'll discharge home. I see no need for further labs or CT scan. He has multiple in the past. Last Vital Signs Date Time Temp Pulse Resp B/P Pulse Ox O2 Delivery O2 Flow Rate FiO2 11/03/16 00:21 98.2 87 18 138/89 97 Room Air Status: improved Disposition: HOME, SELF-CARE Condition: Stable Patient Instructions: Abdominal Pain, Adult Additional Instructions: Keep the appointment with Dr. Gaspar. Return if symptom worsen. TERRANCE DELANEY M.D. November 03, 2016 01:15
[2016-11-03 01:20] VITALS: BP 138/89
== END 2016-11-03 01:20 | disposition home or self-care (01) ==
LOC: EMR 01:03
DX: R10.9 Unspecified abdominal pain (principal); F11.20 Opioid dependence, uncomplicated; Z88.6 Allergy status to analgesic agent; Z88.8 Allergy status to other drugs, medicaments and biological substances
CPT/HCPCS: 96372; 99283; J1170

== ENCOUNTER 2016-12-24 11:03 | Emergency (ER) | payer MEDICARE, OTHER ==
[~2016-12-24] VITALS: Ht 175.3 cm; Wt 80.7 kg
[2016-12-24 11:21] VITALS: BP 123/85
[2016-12-24] MEDS ORDERED: DiphenhydrAMINE 50mg/ml Inj IVP ONE (11:30)
[2016-12-24] MEDS ORDERED: Hydromorphone 0.5mg/0.5ml inj IVP ONE (11:30)
[2016-12-24] MEDS ORDERED: Metoclopramide 10mg/2ml Inj IVP ONE (11:30)
[2016-12-24 13:42] LABS: APPEARANCE,URINE CLEAR; KETONES,URINE NEGATIVE (NEGATIVE); LEUKOCYTE ESTERASE ,URINE NEGATIVE (NEGATIVE); NITRITE,URINE NEGATIVE (NEGATIVE); PH,URINE 6 (4.5-8.0); PROTEIN,URINE 1+ (NEGATIVE); UROBILINOGEN,URINE NORMAL MG/DL (0.0-1.0)
[2016-12-24 13:48] LABS: BASOPHILS % (AUTO) 0.6 % (0.0-2.0); EOSINOPHILS % (AUTO) 0.5 % (0.0-3.0); LYMPHOCYTES % (AUTO) 22.9 % (20.0-45.0); MEAN CORPUSCULAR HEMOGLOBIN 35.6 PG (27.0-31.0); MEAN CORPUSCULAR HGB CONC 33.3 G/DL (32.0-36.0); MEAN CORPUSCULAR VOLUME 107 FL (80-99); MEAN PLATELET VOLUME 7.2 FL (6.5-10.1); MONOCYTES % (AUTO) 7.2 % (1.0-10.0); NEUTROPHILS % (AUTO) 68.9 % (45.0-75.0); PLATELET COUNT 259 K/UL (150-450); RED BLOOD COUNT 3.76 M/UL (4.70-6.10); RED CELL DISTRIBUTION WIDTH 11.5 % (11.6-14.8); WHITE BLOOD COUNT 7.1 K/UL (4.8-10.8)
[2016-12-24 14:00] LABS: BACTERIA,URINE OCCASIONAL /HPF; MUCUS,URINE OCCASIONAL /LPF (NONE/OCC); RBC,URINE 0-2 /HPF (0 - 0); SQUAMOUS EPITHELIAL CELL,UR OCCASIONAL /LPF (NONE/OCC); WBC,URINE 0-2 /HPF (0 - 0)
[2016-12-24 14:04] LABS: TROPONIN I < 0.30 ng/mL (<=0.30)
[2016-12-24 14:06] LABS: ALANINE AMINOTRANSFERASE 28 U/L (3-41); ALBUMIN/GLOBULIN RATIO 1.7 (1.0-2.7); ANION GAP 16 (5-15); ASPARTATE AMINO TRANSFERASE 27 U/L (5-40); CALCIUM 9.2 mg/dL (8.6-10.2); CARBON DIOXIDE 15 mEQ/L (20-30); CHLORIDE 109 mEQ/L (98-107); CREATININE 2.7 mg/dL (0.7-1.2); HEMOLYSIS 4; LIPASE 32 U/L (< 60); MAGNESIUM 1.3 mg/dL (1.7-2.5); POTASSIUM 4.4 mEQ/L (3.4-4.9); SODIUM 140 mEQ/L (135-145); TOTAL PROTEIN 7.6 g/dL (6.6-8.7)
[2016-12-24 14:13] LABS: PROTHROMBIN TIME 10.4 SEC (9.30-11.50)
--- NOTE | 2016-12-24 14:13 | Diagnostic Imaging Report ---
Indication: Chest and abdominal pain Comparison: 04/04/15 A single view chest radiograph was obtained. Findings: Cardiomediastinal appearance is within normal limits for age. There is a PICC line in the left arm. The tip is in the SVC in good position. Pulmonary vascularity is appropriate. The diaphragmatic contour is smooth and costophrenic angles are sharp. No pleural effusions are identified. The bones are unremarkable. Impression: No acute findings
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
[2016-12-24 14:26] LABS: BILIRUBIN,DIRECT 0.2 mg/dL (0.1-0.3)
[2016-12-24 16:21] VITALS: BP 123/85
== END 2016-12-24 16:23 | disposition home or self-care (01) ==
LOC: EMR 12:34
DX: E83.42 Hypomagnesemia (principal); K91.2 Postsurgical malabsorption, not elsewhere classified; N28.9 Disorder of kidney and ureter, unspecified; G89.4 Chronic pain syndrome; K21.9 Gastro-esophageal reflux disease without esophagitis; Z88.6 Allergy status to analgesic agent; Z88.8 Allergy status to other drugs, medicaments and biological substances; I10 Essential (primary) hypertension
CPT/HCPCS: 36415; 71010; 74000; 80053; 81003; 82248; 82550; 83690; 83735; 84484; 85025; 85610; 85730; 93005; 96360; 96361; 96374; 96375; 99284; J1170; J1200; J2765

== ENCOUNTER 2017-03-03 21:07 | Emergency (ER) | payer MEDICARE, OTHER ==
[~2017-03-03] VITALS: Ht 175.3 cm; Wt 81.6 kg
[2017-03-03 21:55] VITALS: BP 139/77
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
[2017-03-03 22:38] LABS: BASOPHILS % (AUTO) 0.8 % (0.0-2.0); EOSINOPHILS % (AUTO) 0.6 % (0.0-3.0); LYMPHOCYTES % (AUTO) 19.6 % (20.0-45.0); MEAN CORPUSCULAR HGB CONC 34.6 G/DL (32.0-36.0); MEAN CORPUSCULAR VOLUME 104 FL (80-99); MEAN PLATELET VOLUME 6.5 FL (6.5-10.1); MONOCYTES % (AUTO) 8.2 % (1.0-10.0); NEUTROPHILS % (AUTO) 70.8 % (45.0-75.0); PLATELET COUNT 180 K/UL (150-450); RED BLOOD COUNT 3.02 M/UL (4.70-6.10); WHITE BLOOD COUNT 7.7 K/UL (4.8-10.8)
[2017-03-03] MEDS ORDERED: HYDROmorphone 1mg/ml Carpuject IVP ONE (22:45)
[2017-03-03 22:53] LABS: CALCIUM 8.8 mg/dL (8.6-10.2); CREATININE 2.2 mg/dL (0.7-1.2); GLOMERULAR FILTRATION RATE 40.4 mL/min (>60); MAGNESIUM 1.1 mg/dL (1.7-2.5); POTASSIUM 3.8 mEQ/L (3.4-4.9)
[2017-03-03 23:20] VITALS: BP 123/80
[2017-03-04 00:05] VITALS: BP 119/79
[2017-03-04 00:39] VITALS: BP 119/79
== END 2017-03-04 00:05 | disposition home or self-care (01) ==
LOC: EMR 21:48
DX: R07.9 Chest pain, unspecified (principal); R10.9 Unspecified abdominal pain; G89.4 Chronic pain syndrome; F11.20 Opioid dependence, uncomplicated; E83.42 Hypomagnesemia; Z88.6 Allergy status to analgesic agent; Z88.8 Allergy status to other drugs, medicaments and biological substances; N19 Unspecified kidney failure; R51 Headache
CPT/HCPCS: 36415; 80048; 83735; 85025; 96365; 96375; 99284; J1170; J2405

== ENCOUNTER 2017-04-07 14:37 | Emergency (ER) | payer MEDICARE, OTHER ==
[~2017-04-07] VITALS: Ht 175.3 cm; Wt 82.6 kg
[2017-04-07 14:50] VITALS: BP 118/72
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
--- NOTE | 2017-04-07 15:55 | Diagnostic Imaging Report ---
Indication: Shortness of breath Technique: One view of the chest Comparison: 12/24/2016 Findings: The lungs and pleural spaces are clear. There is a left arm PICC. Heart size is normal. No significant change Impression: No acute process
[2017-04-07 16:52] VITALS: BP 122/68
[2017-04-07 17:02] LABS: BASOPHILS % (AUTO) 0.8 % (0.0-2.0); EOSINOPHILS % (AUTO) 1.4 % (0.0-3.0); LYMPHOCYTES % (AUTO) 13.8 % (20.0-45.0); MEAN CORPUSCULAR HEMOGLOBIN 33.9 PG (27.0-31.0); MEAN CORPUSCULAR HGB CONC 32.2 G/DL (32.0-36.0); MEAN CORPUSCULAR VOLUME 105 FL (80-99); MEAN PLATELET VOLUME 7.4 FL (6.5-10.1); MONOCYTES % (AUTO) 8.8 % (1.0-10.0); NEUTROPHILS % (AUTO) 75.1 % (45.0-75.0); PLATELET COUNT 172 K/UL (150-450); RED BLOOD COUNT 3.41 M/UL (4.70-6.10); RED CELL DISTRIBUTION WIDTH 10.9 % (11.6-14.8); WHITE BLOOD COUNT 9.6 K/UL (4.8-10.8)
[2017-04-07 17:27] LABS: ALANINE AMINOTRANSFERASE 24 U/L (12-78); ALBUMIN/GLOBULIN RATIO 0.9 (1.0-2.7); ANION GAP 14 mmol/L (5-15); ASPARTATE AMINO TRANSFERASE 16 U/L (15-37); CALCIUM 8.4 MG/DL (8.5-10.1); CARBON DIOXIDE 21 MMOL/L (21-32); CHLORIDE 110 MMOL/L (98-107); CKMB 1.9 NG/ML (0.0-3.6); CREATININE 2.3 MG/DL (0.55-1.30); GLOMERULAR FILTRATION RATE 38.4 mL/min (>60); POTASSIUM 3.9 MMOL/L (3.5-5.1); SODIUM 145 MMOL/L (136-145); TOTAL PROTEIN 7.3 G/DL (6.4-8.2)
[2017-04-07 18:08] LABS: BILIRUBIN,DIRECT 0.2 MG/DL (0.0-0.3)
[2017-04-07 19:20] VITALS: BP 128/68
--- NOTE | 2017-04-09 15:20 | Cardiology Report ---
APPROVED REPORT EKG Measurement Heart [id number] Normal sinus rhythm Nonspecific T wave abnormality Abnormal ECG
== END 2017-04-07 19:20 | disposition home or self-care (01) ==
LOC: EMR 15:36
DX: R07.89 Other chest pain (principal); N18.9 Chronic kidney disease, unspecified
CPT/HCPCS: 36415; 71010; 80053; 82248; 82550; 82553; 83735; 84484; 85025; 93005; 96361; 96365; 99284

== ENCOUNTER 2017-06-10 12:35 | Emergency (ER) | payer MEDICARE, OTHER ==
[~2017-06-10] VITALS: Ht 175.3 cm; Wt 79.4 kg
[2017-06-10 14:41] LABS: EOSINOPHILS % (AUTO) 0.7 % (0.0-3.0); LYMPHOCYTES % (AUTO) 18.9 % (20.0-45.0); MEAN CORPUSCULAR HEMOGLOBIN 34.6 PG (27.0-31.0); MEAN CORPUSCULAR HGB CONC 33.2 G/DL (32.0-36.0); MEAN CORPUSCULAR VOLUME 104 FL (80-99); MEAN PLATELET VOLUME 6.3 FL (6.5-10.1); MONOCYTES % (AUTO) 6.4 % (1.0-10.0); PLATELET COUNT 275 K/UL (150-450); RED BLOOD COUNT 3.37 M/UL (4.70-6.10); RED CELL DISTRIBUTION WIDTH 11.1 % (11.6-14.8); WHITE BLOOD COUNT 7.9 K/UL (4.8-10.8)
[2017-06-10 14:53] LABS: ANION GAP 15 mmol/L (5-15); CARBON DIOXIDE 17 MMOL/L (21-32); CHLORIDE 110 MMOL/L (98-107); CREATININE 2.3 MG/DL (0.55-1.30); GLOMERULAR FILTRATION RATE 38.4 mL/min (>60); INR 1.1 (0.9-1.1); PROTHROMBIN TIME 11.3 SEC (9.30-11.50); SODIUM 141 MMOL/L (136-145)
[2017-06-10 14:58] LABS: ALANINE AMINOTRANSFERASE 29 U/L (12-78); ALBUMIN/GLOBULIN RATIO 0.9 (1.0-2.7); ASPARTATE AMINO TRANSFERASE 21 U/L (15-37); LIPASE 192 U/L (73-393); MAGNESIUM 0.7 MG/DL (1.8-2.4); TOTAL PROTEIN 7.6 G/DL (6.4-8.2)
[2017-06-10 15:21] VITALS: BP 111/76
[2017-06-10] MEDS ORDERED: Hydromorphone 0.5mg/0.5ml inj IVP ONE (15:45)
[2017-06-10 16:29] VITALS: BP 117/80
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
--- NOTE | 2017-06-11 13:00 | Cardiology Report ---
APPROVED REPORT EKG Measurement Heart [id number] Normal sinus rhythm Normal ECG
== END 2017-06-10 16:20 | disposition home or self-care (01) ==
LOC: EMR 12:56
DX: E83.42 Hypomagnesemia (principal); K63.89 Other specified diseases of intestine; Z88.6 Allergy status to analgesic agent; Z88.8 Allergy status to other drugs, medicaments and biological substances
CPT/HCPCS: 36415; 80053; 83690; 83735; 85025; 85610; 85730; 93005; 96361; 96365; 96375; 99284; J1170; J2405

== ENCOUNTER 2017-10-12 03:31 | Emergency (ER) | payer MEDICARE, OTHER ==
[~2017-10-12] VITALS: Ht 175.3 cm; Wt 83.0 kg
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
[2017-10-12 04:36] LABS: APPEARANCE,URINE CLEAR; BILIRUBIN, URINE NEGATIVE (NEGATIVE); COLOR,URINE PALE YELLOW; GLUCOSE, URINE (UA) NEGATIVE (NEGATIVE); KETONES,URINE NEGATIVE (NEGATIVE); LEUKOCYTE ESTERASE ,URINE NEGATIVE (NEGATIVE); NITRITE,URINE NEGATIVE (NEGATIVE); PH,URINE 6.5 (4.5-8.0); PROTEIN,URINE 1+ (NEGATIVE); UROBILINOGEN,URINE NORMAL MG/DL (0.0-1.0)
[2017-10-12 04:50] LABS: ANION GAP 16 mmol/L (5-15); BASOPHILS % (AUTO) 0.7 % (0.0-2.0); BLOOD UREA NITROGEN 15 mg/dL (7-18); CALCIUM 8.9 MG/DL (8.5-10.1); CARBON DIOXIDE 15 MMOL/L (21-32); CHLORIDE 109 MMOL/L (98-107); CREATININE 2.2 MG/DL (0.55-1.30); EOSINOPHILS % (AUTO) 0.7 % (0.0-3.0); HEMATOCRIT 37.8 % (42.0-52.0); HEMOGLOBIN 13.3 G/DL (14.2-18.0); LYMPHOCYTES % (AUTO) 25.9 % (20.0-45.0); MEAN CORPUSCULAR VOLUME 101 FL (80-99); MONOCYTES % (AUTO) 5.8 % (1.0-10.0); NEUTROPHILS % (AUTO) 66.9 % (45.0-75.0); PLATELET COUNT 216 K/UL (150-450); POTASSIUM 3.6 MMOL/L (3.5-5.1); RED BLOOD COUNT 3.74 M/UL (4.70-6.10); RED CELL DISTRIBUTION WIDTH 11.4 % (11.6-14.8); SODIUM 140 MMOL/L (136-145); WHITE BLOOD COUNT 7.6 K/UL (4.8-10.8)
[2017-10-12 05:04] LABS: ALANINE AMINOTRANSFERASE 46 U/L (12-78); ALBUMIN 4.1 G/DL (3.4-5.0); ALKALINE PHOSPHATASE 87 U/L (46-116); ASPARTATE AMINO TRANSFERASE 21 U/L (15-37); BILIRUBIN,TOTAL 0.8 MG/DL (0.2-1.0)
[2017-10-12] MEDS ORDERED: Norco 5mg/325mg tab ORAL ONE (05:45)
[2017-10-12 06:10] VITALS: BP 0/0
== END 2017-10-12 06:10 | disposition home or self-care (01) ==
LOC: EMR 04:16
DX: E83.42 Hypomagnesemia (principal); G89.4 Chronic pain syndrome; F11.20 Opioid dependence, uncomplicated; R10.9 Unspecified abdominal pain; E87.2 Acidosis; Z88.5 Allergy status to narcotic agent
CPT/HCPCS: 36415; 80053; 81003; 83690; 83735; 85025; 96374; 96375; 99283; J2405